=== PATIENT | female | born 1950 | race Caucasian/White ===

== ENCOUNTER 2017-07-07 10:53 | Inpatient (IN) ==
[~2017-07-07 10:53] MED LIST: Vancomycin 1,000 MG, Sodium Chloride IRRigation 1,000 ML IR ONE
--- NOTE | 2017-07-07 11:25 | Anesthesia Evaluation PreOp ---
Date of Encounter: 07/07/17 Time of Encounter: 11:23 - Past History Planned Operation: Right CEA Cardiac History: NE, HTN, Hyperlipidemia, Cardiac Surgery (CABG x 2 2007), Cardiac Stent (2009) Pulmonary History: HODA Dx LEGAL WRITING PROFESSOR History: Denies Any Significant HX Other Medical History: Diabetes Type II, Other (morbid obesity) Anesthesia History: No Prior Anesthetic Complications, Past Anesthesia (CABG, double endo, bilateral TKA, MARQUIS, CEA 2015) Alcohol Use: none Drug use: none Medications and Allergies Acetaminophen [Tylenol] 1,300 mg PO DAILY 08/14/15 [History] Aspirin [Adult Low Dose Aspirin EC] 81 mg PO HS 08/14/15 [History] Losartan Potassium [Cozaar] 50 mg PO BID 08/14/15 [History] Metoprolol [Lopressor] 100 mg PO BID 08/14/15 [History] Nitroglycerin [Nitrostat] 0.4 mg SL Q5M PRN 08/14/15 [History] [place]-3/Dha/Epa/Fish Oil [Fish Oil 1,000 mg Softgel] 1,000 mg PO BID 08/14/15 [ History] Wheat Dextrin [Benefiber] 1 tab PO TID 08/14/15 [History] metFORMIN [Glucophage] 500 mg PO BIDWM 08/14/15 [History] Amlodipine Besylate 10 mg PO DAILY #30 tablet 09/09/15 [Rx] Atorvastatin Calcium [Lipitor] 80 mg PO HS 06/18/17 [History] Calcium Carbonate/Vitamin D3 [Calcium 600 + Vit D Softgel] 1 each PO DAILY 06/18 [History] Clopidogrel [Plavix] 75 mg PO DAILY 06/18/17 [History] Lansoprazole [Prevacid] 30 mg PO DAILY 06/18/17 [History] Spironolactone [Aldactone] 100 mg PO DAILY 06/18/17 [History] Sucralfate [Carafate] 1 g PO BID 06/18/17 [History] raNITIdine HCl [Ranitidine HCl] 300 mg PO HS 06/18/17 [History] 3 Allergy/AdvReac Type Severity Reaction Status Date / Time No Known Allergies Allergy Verified 06/18/17 08:24 - Meds/Allergy Pre-op Review Medications Reviewed: Yes Allergies Reviewed: Yes Beta Blockers on Current Med List: Yes If Beta Blockers taken, Date/Time (Last Dose taken): today 0900 Anesthesia Results - Labs Laboratory Tests 07/01/17 07/01/17 08:45 08:45 Hgb 13.8 Hct 42.4 Plt Count 309 Sodium 140 Potassium 4.1 BUN 14 Creatinine 0.53 L - Imaging Additional studies: stress test: Impression: Perfusion imaging was negative for ischemia or infarct. Pharmacologic stress ECG is non diagnostic for ischemia due to baseline non-specific ST and T changes. Patient described 3/10 chest heaviness during the procedure. Gated EF > 70%. Clinical correlation suggested. Echo: Impressions: LVEF 65%. Normal LV chamber size and function. Mild to moderate concentric left ventricular hypertrophy. Atypical septal motion consistent with post-operative status. Mild left ventricular diastolic dysfunction. Normal right ventricular structure and function. Mild aortic regurgitation. Unable to estimate RVSP due to lack of TR jet. Compared to prior report from 2016, no significant changes. Anesthesia Exam Selected Entries 07/07/17 11:21 Temperature 97.7 F Pulse Rate 61 Respiratory Rate 18 Blood Pressure 176/64 O2 Sat by Pulse Oximetry 93 Weight: 102kg, BMI 41 NPO (# of Hours): 8 - HEENT Pupil (Motor): EOMI Mallampati: IV Teeth: Poor dentition Oral Opening: Less than or equal to 3 - LEGAL WRITING PROFESSOR LOC: Oriented LEGAL WRITING PROFESSOR Motor: Normal RUE, Normal LUE, Normal RLE, Normal LLE, Normal Face LEGAL WRITING PROFESSOR Sensory: Normal: RUE, LUE, RLE, LLE, Face - Cardiac Rhythm: Regular Murmur: None - Pulmonary Breath Sounds: bilateral Clear Respiratory Effort: Symmetrical Anesthesia Assess/Plan ASA Score: 3 Modified Prescott Scale for Level of Consciousness: Cooperative, oriented, and tranquil Anesthetic Plan: General Monitoring Plan: Standard Monitors, A-Line Recovery Plan: PACU (agrees to GA and a-line)
[2017-07-07] MEDS ORDERED: CeFAZolin Syr 2,000MG/20 ML 2,000 MG/20 ML SYRINGE IVPB ONE (11:31)
[2017-07-07] MEDS ORDERED: Albuterol 2.5 MG/3 ML NEBULIZER IH ONE (11:31)
[2017-07-07] MEDS ORDERED: Plasma-Lyte A (PH 7.4) 1,000 ML IVC SCH (11:45)
[2017-07-07] MEDS ORDERED: Lidocaine -MPF 2% 2 ML VIAL ONE ×2 (12:16→12:26)
[2017-07-07] MEDS ORDERED: Dexamethasone 4 MG/ML VIAL ONE (12:17)
[2017-07-07] MEDS ORDERED: *HR* Succinylcholine 200 MG/10 ML VIAL IVP ONE (12:17)
[2017-07-07] MEDS ORDERED: *HR* FentaNYL (PF) 100 MCG/2 ML VIAL ONE (12:17)
[2017-07-07] MEDS ORDERED: Ondansetron 4 MG/2 ML VIAL ONE (12:17)
[2017-07-07] MEDS ORDERED: *HR* Propofol 200 MG/20 ML VIAL IVP ONE (12:18)
--- NOTE | 2017-07-07 12:20 | History & Physical Report ---
Date of Encounter: 07/07/17 Time of Encounter: 12:10 24 Hour HP Update - Instructions Instructions: If the History and Physical is less than 30 days old and was completed prior to A.M. admission and or procedure and has NOT been updated on calendar day of procedure please complete this update prior to performing procedure. - Update Patient reports changes in Medical Condition: No Changes in examination, assessment, or condition: No Changes in Medication: No Preop tests/diagnostics Reviewed: Yes Surgery Remains Indicated: Yes Consent for Planned Operative Procedure(s) Verified: Yes - Pre-Operative Checklist Preoperative Checklist Indicated: Yes Prophylactic Antibiotic Ordered: Yes (vancomycin due to mrsa risk.) Home Medications Include Beta Isma: Yes Beta Isma Taken Today (Day of Surgery): Yes Beta Isma Taken Yesterday (Day Prior to Surgery): Yes Is VTE Prophylaxis Indicated?: Yes
[2017-07-07] MEDS ORDERED: *HR* Heparin 5,000 UNIT/ML VIAL ONE ×2 (12:21→14:32)
[2017-07-07] MEDS ORDERED: EPHEDrine 50 MG/ML VIAL ONE (12:21)
[2017-07-07] MEDS ORDERED: *HR* Midazolam HCl 2 MG/2 ML VIAL ONE (12:22)
[2017-07-07] MEDS ORDERED: Bupivacaine-MPF 0.25% 10 ML VIAL ONE (12:23)
[2017-07-07] MEDS ORDERED: Protamine Sulfate 50 MG/5 ML VIAL IVP ONE (12:23)
[2017-07-07] MEDS ORDERED: Heparin 1,000 UNITS/500 mL 1,000 ML ONE (12:24)
[2017-07-07] MEDS ORDERED: Vancomycin 1,000 MG VIAL ONE (12:25)
[2017-07-07] MEDS ORDERED: *HR* PHENYLEPHRINE 1,000 MCG/10 ML SYRINGE IVP ONE ×2 (12:26→14:25)
[2017-07-07] MEDS ORDERED: *HR* Labetalol 20 MG/4 ML SYRINGE IVP PRN ×2 (13:54→17:08)
[2017-07-07] MEDS ORDERED: *HR* OxyCODONE Immed Rel 5 MG TABLET PO PRN ×2 (13:54→17:08)
[2017-07-07] MEDS ORDERED: MORPHINE SUL Oral CONC 10 MG/0.5 ML ORAL.SYG SL PRN (13:54)
[2017-07-07] MEDS ORDERED: NiCARdipine 2.5 MG/10 ML Syringe IVPB ONE (15:34)
--- NOTE | 2017-07-07 16:08 | Operative Note ---
Date of procedure: 07/07/17 Pre-op diagnosis: 80-99% Right Internal Carotid Artery Stenosis Post-op diagnosis: same Procedure: Right carotid endarterectomy with hemashield patch angioplasty. Complications: None Anesthesia: [id number] Surgeon: Bartolo Li Was there an post production assistant present: No Estimated blood loss (cc): 50 Specimen: Right carotid plaque, right neck lymph node Condition: stable Disposition: PACU Procedure in Detail: Indications: The patient is a 66 year old female with a history of hypertension and hyperlipidemia who was found to have an 80-99% right internal carotid artery stenosis. A right carotid endarterectomy was recommended to reduce her risk of stroke. Procedure: The patient was identified in the preoperative area. The risks, benefits, and alternatives of the procedure were discussed and all questions were answered. The patient was then taken to the operating room and placed in supine position on the operating table. After induction of general endotracheal anesthesia, the patient was cleaned and draped in normal sterile fashion. A longitudinal incision was made anterior to the right sternocleidomastoid muscle. Hemostasis was obtained via electrocautery. Through a process of blunt , sharp, and electrocautery dissection, the platysma was traversed. The jugular vein was identified. The facial vein was clamped, divided, tied off with a 2-0 silk suture ligature. The jugular vein was retracted, exposing the carotid bifurcation. Patient received 2000 units of heparin intravenously at this time. Proximal dissection of the common and external carotid arteries were performed circumferentially. Dissection of the internal carotid was performed circumferentially. Vessels loops were passed around the internal and external carotid and an umbilical tape was passed from the common carotid artery. A lymph node was overlying the carotid sheath and was dissected and sent to pathology. The patient received additional 3000 units of heparin intravenously. After waiting adequate time for the heparin to circulate, the vessels were occluded and a longitudinal arteriotomy was made into the common carotid artery extending into the internal carotid beyond the plaque. Vigorous pulsatile retrograde flow was noted from the internal carotid artery upon release of the loop. Given the strong retrograde flow, no shunt was placed. A dental [place] was used to perform a standard endarterectomy. The proximal and distal endpoints were inspected and no elevated flaps were noted. A Hemashield patch was cut to fit the defect and sutured in place with running 6 -0 Prolene. Prior to completing the closure, each vessel was flushed and then reoccluded. Heparinized saline was infused into the lumen. The patch was completed. Flow was restored in the external carotid artery, followed the common carotid artery, lastly the internal carotid artery was opened. A low resistance arterialized signal was present within the internal carotid artery beyond the patch. Thrombin and Gelfoam were used to aid in hemostasis. Meticulous hemostasis was obtained throughout the wound with electrocautery. Platelet rich and platelet poor plasma were infused into the wounds. The sternocleidomastoid was reapproximated with interrupted 3-0 Vicryl. Platelet rich and platelet poor plasma were infused into the wound. A TLS drain was brought through a separate stab incision and sutured in place with 0 silk suture. The platysma was reapproximated with running 3-0 Vicryl. Local anesthetic was infused in the skin. A 3-0 Monocryl was used to reapproximate the skin. Sterile dressing was applied. The patient was extubated, taken to the recovery room in stable condition.
[2017-07-07] MEDS ORDERED: *HR* Dextrose 50 % in Water (Syg) 50 ML SYRINGE IVP PRN (17:08)
[2017-07-07] MEDS ORDERED: Dextrose Gel 15 GM/37.5 ML TUBE PO PRN ×2 (17:08)
[2017-07-07] MEDS ORDERED: Nitroglycerin 0.4 MG TAB.SUBL SL PRN (17:08)
[2017-07-07] MEDS ORDERED: Acetaminophen 325 MG TABLET PO PRN (17:08)
[2017-07-07] MEDS ORDERED: D5% in Water 1,000 ML IVC PRN (17:08)
[2017-07-07] MEDS ORDERED: OXYCODONE Oral CONC 10 MG/0.5 ML ORAL.SYG SL PRN ×2 (17:08)
[2017-07-07] MEDS ORDERED: Naloxone 0.4 MG/ML INJ IVP PRN (17:08)
--- NOTE | 2017-07-07 17:12 | Anesthesia Evaluation Post Op ---
Date of Encounter: 07/07/17 Time of Encounter: 17:11 - Vital Signs Vital Signs: Vital Signs/O2 Sat, Most Current Temp Pulse Resp BP Pulse Ox 99.3 F 58 16 139/54 96 07/07/17 16:40 07/07/17 16:40 07/07/17 16:40 07/07/17 16:40 07/07/17 16:40 - Lungs Lungs: Clear Ascult./Percussion - Airway Airway: Non-obstructed - Cardiovascular Regular Rate - Mental Status Mental Status: Alert & Oriented, Answers Appropriately - Pain Pain Scale used: Numeric (1 - 10) (tolerable) - Nausea Vomiting Nausea Vomiting: Not Present - Hydration Hydration: NPO, Forbes catheter - Discharge PostOp Status: Transfer Patient to floor
[2017-07-07] MEDS: Insulin LISPRO 300 UNITS/3 ML VIAL SQ SCH (17:34)
[2017-07-07] MEDS: CeFAZolin Premix DUPLEX 2,000 MG/50 ML BAG IVPB SCH (17:41)
[2017-07-07] MEDS: Gabapentin 400 MG CAPSULE PO SCH (17:41)
[2017-07-07] MEDS ORDERED: Famotidine 20 MG TABLET PO SCH (21:00)
[2017-07-07] MEDS ORDERED: Insulin LISPRO 300 UNITS/3 ML VIAL SQ SCH (21:00)
[2017-07-07] MEDS ORDERED: Aspirin Enteric Coated 81 MG Tablet PO SCH (21:00)
[2017-07-07] MEDS: Sucralfate 1 GM TABLET PO SCH (21:20)
[2017-07-07] MEDS: *HR* HYDROcodone/Acet 5/325 mg TABLET PO PRN (21:20)
[2017-07-07] MEDS ORDERED: Vancomycin 1,500 MG in D5% in Water 250 ML IVPB ONE (23:30)
[2017-07-08] MEDS: CeFAZolin Premix DUPLEX 2,000 MG/50 ML BAG IVPB SCH (02:40)
[2017-07-08] MEDS: (Omega-3/Dha/Epa/Fish Oil [Fish Oil 1,000 Mg Softgel]) PO SCH ×2 (04:40→08:21)
[2017-07-08] MEDS ORDERED: *HR* Heparin 5,000 UNIT/ML VIAL SQ SCH ×2 (06:00)
--- NOTE | 2017-07-08 07:26 | Discharge Summary ---
Orders not resulted at time of discharge: Pending orders 07/07/17 15:04 Surgical Pathology [PTH] Routine 07/07/17 15:30 Surgical Pathology [PTH] Routine Date of Encounter: 07/08/17 Time of Encounter: 08:30 - Discharge Diagnosis (1) Carotid stenosis, bilateral Priority: Primary Status: Chronic (2) Essential hypertension Priority: Secondary Status: Chronic (3) Type 2 diabetes mellitus with other circulatory complications Priority: Secondary Status: Chronic (4) Mixed hyperlipidemia Priority: Secondary Status: Chronic (5) Type 2 diabetes mellitus Priority: Secondary Status: Chronic Qualifiers: Diabetes mellitus complication status: with circulatory complication Diabetes mellitus complication detail: with other circulatory complications Diabetes mellitus assistant terminal manager insulin use: without long-term use Qualified Code( s): E11.59 - Type 2 diabetes mellitus with other circulatory complications (6) CAD (coronary artery disease) Priority: Secondary Status: Chronic Qualifiers: Coronary Disease-Associated Artery/Lesion type: bypass graft [place] vs. transplanted heart: [place] heart Associated angina: angina presence unspecified Qualified Code(s): I25.810 - Atherosclerosis of coronary artery bypass graft(s) without angina pectoris - Hospital Course Hospital course: Ms. Solomon is a 66 year old female - Time Spent with Patient Total time spent providing and/or coordinating discharge services: - Discharge Medications Prescriptions: HYDROcodone/Acet 5/325 mg [[place] 5-325 mg] 1 tab PO Q6HR PRN 5 Days #20 tablet PRN Reason: postoperative pain Home Medications: Acetaminophen [Tylenol] 1,300 mg PO DAILY PRN 08/14/15 [History] Aspirin [Adult Low Dose Aspirin EC] 81 mg PO HS 08/14/15 [History] Losartan Potassium [Cozaar] 50 mg PO BID 08/14/15 [History] Metoprolol [Lopressor] 100 mg PO BID 08/14/15 [History] Nitroglycerin [Nitrostat] 0.4 mg SL Q5M PRN 08/14/15 [History] [place]-3/Dha/Epa/Fish Oil [Fish Oil 1,000 mg Softgel] 1,000 mg PO BID 08/14/15 [ History] Wheat Dextrin [Benefiber] 1 tab PO TID 08/14/15 [History] metFORMIN [Glucophage] 500 mg PO BIDWM 08/14/15 [History] Amlodipine Besylate 10 mg PO DAILY #30 tablet 09/09/15 [Rx] Atorvastatin Calcium [Lipitor] 80 mg PO HS 06/18/17 [History] Calcium Carbonate/Vitamin D3 [Calcium 600 + Vit D Softgel] 1 each PO DAILY 06/18 [History] Clopidogrel [Plavix] 75 mg PO DAILY 06/18/17 [History] Lansoprazole [Prevacid] 30 mg PO DAILY 06/18/17 [History] Spironolactone [Aldactone] 100 mg PO DAILY 06/18/17 [History] Sucralfate [Carafate] 1 g PO BID 06/18/17 [History] raNITIdine HCl [Ranitidine HCl] 300 mg PO HS 06/18/17 [History] Gabapentin [Neurontin] 400 mg PO QID 07/07/17 [History] HYDROcodone/Acet 5/325 mg [[place] 5-325 mg] 1 tab PO Q6HR PRN 5 Days #20 tablet 07/08/17 [Rx] Allergies/Adverse Reactions: 3 Allergy/AdvReac Type Severity Reaction Status Date / Time No Known Allergies Allergy Verified 07/07/17 12:23 Date of admission: 07/07/17 17:07 Primary care physician: Art Solomon MD Procedure(s) Performed: Right carotid endarterectomy Discharging clinician: Bartolo Li Anticipated date of discharge: 07/08/17 Exam Vital Signs, Last 4 Hours Temp Pulse Resp BP Pulse Ox 07/08/17 07:09 61 135/57 95 07/08/17 05:58 98.2 F 65 16 129/48 97 - Patient Status Disposition: Home, Self-Care Condition: Good Functional capacity at discharge: independent ambulation Overall status at discharge: patient is back to baseline - Discharge Instructions Follow Up With: Bartolo Li MD [Partnered Physician] - 08/11/17 3:40 am Art Solomon MD [Primary Care Provider] - 07/14/17 3:15 am - Diet and Activity Activity: increase activity as tolerated Diet: advance to your usual diet - VTE Documentation of Mechanical Device: Intermittent pneumatic compression device
[2017-07-08] MEDS: Gabapentin 400 MG CAPSULE PO SCH ×2 (08:08→08:20)
[2017-07-08] MEDS: Insulin LISPRO 300 UNITS/3 ML VIAL SQ SCH (08:13)
[2017-07-08] MEDS: Sucralfate 1 GM TABLET PO SCH (08:20)
[2017-07-08] MEDS ORDERED: *HR* Metoprolol 5 MG/5 ML VIAL IVP SCH (09:00)
[2017-07-08] MEDS ORDERED: amLODIPine 5 MG TABLET PO SCH (09:00)
[2017-07-08] MEDS ORDERED: VITAMIN D3 PO SCH (09:00)
[2017-07-08] MEDS ORDERED: CALCIUM CARBONATE PO SCH (09:00)
[2017-07-08] MEDS ORDERED: Metoprolol 100 MG TABLET PO SCH (09:00)
[2017-07-08] MEDS: *HR* HYDROcodone/Acet 5/325 mg TABLET PO PRN (11:06)
[2017-07-08 11:28] VITALS: BP 154/51
== END 2017-07-08 11:56 | disposition home or self-care (01) | DRG 38 ==
LOC: SAMDAY 10:53 → 2NNU 17:07
PROVIDERS: ADMIT Surgery; ATTEND Surgery

== ENCOUNTER 2017-07-10 08:10 | Inpatient (IN) ==
[2017-07-10] MEDS ORDERED: Ipratropium/Albuterol Neb 3 ML IH ONE (08:23)
--- NOTE | 2017-07-10 08:27 | Emergency Department Note ---
Disposition Clinical Impression: Hypoxia, Elevated troponin Pneumonia Qualifiers: Pneumonia type: due to unspecified organism Laterality: unspecified laterality Lung location: unspecified part of lung Qualified Code(s): J18.9 - Pneumonia, unspecified organism Disposition: Admitted As Inpatient Condition: Fair Referrals: Art Solomon MD [Primary Care Provider] - Forms: ED Satisfaction Letter Time of Disposition: 09:23 SOB HPI - General Chief Complaint: ED Shortness of Breath/Dyspnea Stated Complaint: JEANNETTE, recent surgery Time Seen by Provider: 07/10/17 08:12 Source: patient, family Mode of arrival: ambulatory Limitations: no limitations Nursing Notes Reviewed: Yes Vital Signs Reviewed: Yes - History of Present Illness 66-year-old female with a history of ACS, hypertension, diabetes presents for evaluation of dyspnea. Patient also notes epistaxis now resolved from this morning. Patient's postoperative from a right carotid endarterectomy. The patient states that she has been feeling short of breath for the past 24 hours. Patient reports subjective fevers. No productive cough. Patient denies any chest pain. Patient denies abdominal pain. No nausea or vomiting or diaphoresis. Patient states she does not require oxygen at home. Patient does have a CPAP at home. Patient denies a formal diagnosis of COPD however has remote history of smoking. - Related Data Home Medications Medication Instructions Recorded Confirmed Acetaminophen [Tylenol] 1,300 mg PO DAILY PRN 08/14/15 07/10/17 Aspirin [Adult Low Dose Aspirin EC] 81 mg PO HS 08/14/15 07/10/17 Losartan Potassium [Cozaar] 50 mg PO BID 08/14/15 07/10/17 Metoprolol [Lopressor] 100 mg PO BID 08/14/15 07/10/17 Nitroglycerin [Nitrostat] 0.4 mg SL Q5M PRN 08/14/15 07/10/17 [place]-3/Dha/Epa/Fish Oil [Fish Oil 1,000 mg PO BID 08/14/15 07/10/17 1,000 mg Softgel] Wheat Dextrin [Benefiber] 1 tab PO TID 08/14/15 07/10/17 metFORMIN [Glucophage] 500 mg PO BIDWM 08/14/15 07/10/17 Atorvastatin Calcium [Lipitor] 80 mg PO HS 06/18/17 07/10/17 Calcium Carbonate/Vitamin D3 1 each PO DAILY 06/18/17 07/10/17 [Calcium 600 + Vit D Softgel] Clopidogrel [Plavix] 75 mg PO DAILY 06/18/17 07/10/17 Lansoprazole [Prevacid] 30 mg PO DAILY 06/18/17 07/10/17 Spironolactone [Aldactone] 100 mg PO DAILY 06/18/17 07/10/17 Sucralfate [Carafate] 1 g PO BID 06/18/17 07/10/17 raNITIdine HCl [Ranitidine HCl] 300 mg PO HS 06/18/17 07/10/17 Gabapentin [Neurontin] 400 mg PO QID 07/07/17 07/10/17 Previous Rx's Medication Instructions Recorded Amlodipine Besylate 10 mg PO DAILY #30 tablet 09/09/15 HYDROcodone/Acet 5/325 mg [[place] 1 tab PO Q6HR PRN 5 Days #20 tablet 07/08/17 5-325 mg] Allergies Allergy/AdvReac Type Severity Reaction Status Date / Time No Known Allergies Allergy Verified 07/10/17 09:12 All systems ED: reviewed and negative except as stated. Constitutional: Reports: fever Cardiovascular: Denies: chest pain Respiratory: Reports: cough, dyspnea. Denies: wheezes, sputum production Gastrointestinal: Denies: abdominal pain, nausea, vomiting Past Medical History - Past Medical History Source: patient Medical history: Reports: arthritis, coronary artery disease, diabetes, hyperlipidemia, hypertension, myocardial infarction Surgical history: Reports: angioplasty/stent, carotid endarterectomy, cholecystectomy, coronary bypass (CABG), hysterectomy, knee replacement, ureteral stent Psychiatric history: Reports: no psych history - Social History Smoking Status: Former smoker Smokeless Tobacco Status: No Alcohol use: Reports: none Drug use: Reports: none Physical Exam - General Limitations: no limitations General appearance: alert, in distress - Head Head exam: atraumatic, normocephalic, normal inspection - Eye Eye exam: Present: normal appearance, PERRL, EOMI - ENT ENT exam: normal exam, normal oropharynx, mucous membranes moist - Expanded ENT Exam External ear exam: Present: normal external inspection Nose exam: other (Clot on R nare) Mouth exam: Present: normal external inspection Teeth exam: Present: normal inspection - Neck Neck exam: Present: normal inspection, full ROM, trachea midline - Chest Chest inspection: Present: normal inspection, symmetric chest wall rise - Respiratory Respiratory exam: Present: accessory muscle use, other (diffuesly dimimished.). Absent: normal lung sounds bilaterally, respiratory distress - Cardiovascular Cardiovascular exam: Present: regular rate, normal rhythm. Absent: systolic murmur - Abdominal Exam Abdominal exam: Present: soft, Non-Tender - Extremities Exam Extremities exam: Present: normal inspection. Absent: pedal edema - Neurological Exam Neurological exam: Present: alert, oriented X3, CN II-XII intact - Skin Skin exam: Present: warm, dry, intact, normal color Course Course Narrative: Patient will get basic labs chest x-ray. Patient is deemed low risk for PE and given the hypoxia with recent hospitalization with mobilization patient will get a d-dimer. Patient's records reviewed showed the patient does have a recent echo and stress test within the past 2 months which was negative for ischemia or infarct. Patient had an EF of 65-70%. - Reevaluation(s) Reevaluation #1: Patient still requires oxygen. Patient's white count shows a leukocytosis with a left shift. Chest x-ray shows pulmonary vascular congestion however concerns for subclinical pneumonia given the white count as well as cough and hypoxia. With recent hospitalization. Patient was started on antibiotics. Time: 09:08 Reevaluation #2: Patient seen and examined. Patient breathing is unlabored. Patient labs reviewed. Patient will get a CTA chest with elevated D dimer. Time: 09:31 Vital Signs Temperature 98.8 F 07/10/17 08:17 Pulse Rate 76 07/10/17 08:17 Respiratory Rate 24 07/10/17 08:17 Blood Pressure 170/73 07/10/17 08:17 O2 Sat by Pulse Oximetry 80 07/10/17 08:17 Temperature 98.8 F 07/10/17 08:17 Pulse Rate 77 07/10/17 08:38 Respiratory Rate 22 07/10/17 08:38 Blood Pressure 156/77 07/10/17 08:38 O2 Sat by Pulse Oximetry 87 07/10/17 08:38 Oxygen Delivery Oxygen Delivery Room Air Shortness of Breath/Dyspnea - MDM Narrative Medical decision making narrative: Patient presents for complaints of dyspnea. Patient had a recent surgery. Initially the patient was requiring oxygen with room air sat of 84%. Patient's been on 3-4 L in the emergency department. Patient's breathing is nonlabored. Patient did have an albuterol trial. No formal diagnosis of COPD. Patient's chest x-ray showed pulmonary vascular congestion. Patient does have a slight elevation of her BNP. She does not have a history of congestive heart failure. With a recent stress test reviewed. Given the patient's recent hospitalization as well as leukocytosis the patient did meet SIRS criteria and was started on antibiotics for concerns of possible pneumonia. Patient was deemed low risk for pulmonary embolism and did have a mild elevation of d-dimer ultimately prompting a CT of the chest. Patient was not over aggressively hydrated given the chest x-ray findings of congestion as well as an elevated BNP. In the setting of an elevated troponin with no ischemic EKG findings. Patient will be admitted to the hospitalist service for further evaluation respiratory support. Patient's CT shows pulmonary edema versus early developing pneumonia. Given the patient's clinical exam the patient will be treated for hospital associated pneumonia. - Lab Data Lab results reviewed: Yes I reviewed the patient's lab results. Result diagrams: 07/10/17 08:34 07/10/17 08:34 Lab Results 07/10/17 07/10/17 07/10/17 Range/Units 08:34 08:34 08:34 WBC 19.2 H (4.3-11.1) K/mcL RBC 4.28 (3.82-4.97) M/mcL Hgb 12.5 (11.5-15.4) g/dL Hct 39.1 (35.3-44.9) % MCV 91.4 (83.0-100.0) fL MCH 29.2 (28.0-33.3) pg MCHC 32.0 (31.6-35.5) g/dL RDW 13.6 (11.5-14.5) % Plt Count 282 (140-400) K/mcL MPV 10.5 (9.4-12.4) fL Immature Gran % 0.5 (0-4) % Seg Neutrophils % 75.5 % Lymphocytes % 11.9 % Monocytes % 9.5 % Eosinophils % 2.2 % Basophils % 0.4 % Neutrophils # 14.5 H (1.6-8.9) K/mcL Lymphocytes # 2.3 (0.6-4.6) K/mcL Monocytes # 1.8 H (0.0-1.3) K/mcL Eosinophils # 0.4 (0.0-0.6) K/mcL Basophils # 0.1 (0.0-0.2) K/mcL D-Dimer (0-500) ng/mLFEU Sodium 139 (136-145) mEq/L Potassium 3.5 (3.5-5.1) mEq/L Chloride 104 (98-107) mEq/L Carbon Dioxide 25 (23-29) mEq/L BUN 9 (8-23) mg/dL Creatinine 0.49 L (0.60-1.20) mg/dL Est GFR ( Amer) > 60 (> 60) Est GFR (Non-Af Amer) > 60 (> 60) BUN/Creatinine Ratio 18 (6-26) Glucose 164 H (70-105) mg/dL Calculated Osmolality 290 (280-300) Lactic Acid 1.9 (0.5-2.2) mmol/L Calcium 9.2 (8.6-10.3) mg/dL Troponin I 0.04 H* (< 0.04) ng/mL B-Natriuretic Peptide (Less than 100) pg/mL 07/10/17 07/10/17 Range/Units 08:34 08:34 WBC (4.3-11.1) K/mcL RBC (3.82-4.97) M/mcL Hgb (11.5-15.4) g/dL Hct (35.3-44.9) % MCV (83.0-100.0) fL MCH (28.0-33.3) pg MCHC (31.6-35.5) g/dL RDW (11.5-14.5) % Plt Count (140-400) K/mcL MPV (9.4-12.4) fL Immature Gran % (0-4) % Seg Neutrophils % % Lymphocytes % % Monocytes % % Eosinophils % % Basophils % % Neutrophils # (1.6-8.9) K/mcL Lymphocytes # (0.6-4.6) K/mcL Monocytes # (0.0-1.3) K/mcL Eosinophils # (0.0-0.6) K/mcL Basophils # (0.0-0.2) K/mcL D-Dimer 739 H (0-500) ng/mLFEU Sodium (136-145) mEq/L Potassium (3.5-5.1) mEq/L Chloride (98-107) mEq/L Carbon Dioxide (23-29) mEq/L BUN (8-23) mg/dL Creatinine (0.60-1.20) mg/dL Est GFR ( Amer) (> 60) Est GFR (Non-Af Amer) (> 60) BUN/Creatinine Ratio (6-26) Glucose (70-105) mg/dL Calculated Osmolality (280-300) Lactic Acid (0.5-2.2) mmol/L Calcium (8.6-10.3) mg/dL Troponin I (< 0.04) ng/mL B-Natriuretic Peptide 373 H (Less than 100) pg/mL - Radiology Data Radiology results reviewed: Yes I reviewed the patient's radiology results. Chest X-Ray 07/10/17 08:23 IMPRESSION: Pulmonary vascular congestion D/ / Sagar Brown MD / Sagar Brown MD Interpreting Provider: Sagar Brown MD Chest X-Ray 07/10/17 08:23 IMPRESSION: Pulmonary vascular congestion D/ / Sagar Brown MD / Sagar Brown MD Interpreting Provider: Sagar Brown MD Chest CTA 07/10/17 09:30 IMPRESSION: 1. No acute pulmonary emboli. 2. Post CABG changes with atherosclerosis. Pulmonary artery hypertension. Reflux of contrast into the hepatic veins which can be seen in the setting of right heart dysfunction. 3. Nonspecific pulmonary findings which could represent early pulmonary edema versus possible developing pneumonia. D/ / Jayant Murray MD / Jayant Murray MD Interpreting Provider: Jayant Murray MD - EKG Data EKG attestation: Yes I reviewed and interpreted this EKG. EKG shows normal: Reports: sinus rhythm Rate: Reports: normal Rhythm: Reports: NSR Q waves: Reports: III T wave inversions noted in: Reports: v1, v2, v3 Interpretation: Reports: no acute changes, nonspecific ST-T wave changes Golden - Golden Situation: Demographics Background: Presenting Complaint Assessment: Vital Signs, Patient/Family Expectation Recommendation: Barrier(s) to disposition, Recommendation based on pending studies, treatments, or consults Golden Report Given to: Dr. Davis Franks Repor Time: 10:27
[2017-07-10 08:53] LABS: Basophils # 0.1 K/mcL (0.0-0.2); Basophils % 0.4 %; Eosinophils # 0.4 K/mcL (0.0-0.6); Eosinophils % 2.2 %; Hematocrit 39.1 % (35.3-44.9); Hemoglobin 12.5 g/dL (11.5-15.4); Immature Granulocytes % 0.5 % (0-4); Lymphocytes # 2.3 K/mcL (0.6-4.6); Lymphocytes % 11.9 %; Mean Corpuscular Hemoglobin 29.2 pg (28.0-33.3); Mean Corpuscular Volume 91.4 fL (83.0-100.0); Mean Platelet Volume 10.5 fL (9.4-12.4); Monocytes # 1.8 K/mcL (0.0-1.3); Monocytes % 9.5 %; Neutrophils # 14.5 K/mcL (1.6-8.9); Platelet Count 282 K/mcL (140-400); Red Blood Count 4.28 M/mcL (3.82-4.97); Red Cell Distribution Width 13.6 % (11.5-14.5); Segmented Neutrophils % 75.5 %
--- NOTE | 2017-07-10 08:57 | Emergency Department Note ---
START Narrative - START START: I examined this patient and my medical decision-making was reviewed with the Resident Physician. I agree with the documented findings, disposition and treatment plan as described except to the extent set forth below. 66 year old female presentees to the ED s/p right carotid artery endectomy and is currenlty on plavix and was experingina nosebleed this morning and JEANNETTE. Upon arrival she was 86% on RA and does not supplental oxygen at home. Patinet has been placed on 2LNC and will be treated with breathin treatments and have a cardipulmonary workup wiht D-dimer to rule out PE. We will admit to medicine.
[2017-07-10] MEDS ORDERED: Piperacillin/Tazobactam 3.375 GM in 0.9 % Sodium Chloride Mini Bag 100 ML IVPB ONE (09:08)
[2017-07-10 09:20] LABS: BUN/Creatinine Ratio 18 (6-26); Blood Urea Nitrogen 9 mg/dL (8-23); Calcium 9.2 mg/dL (8.6-10.3); Carbon Dioxide 25 mEq/L (23-29); Chloride 104 mEq/L (98-107); Glucose 164 mg/dL (70-105); Osmolality,Calculated 290 (280-300); Potassium 3.5 mEq/L (3.5-5.1); Sodium 139 mEq/L (136-145); eGFR For African Americans > 60 (> 60); eGFR For Non-African Americans > 60 (> 60)
[2017-07-10 09:22] LABS: Troponin I 0.04 ng/mL (< 0.04)
[2017-07-10] MEDS ORDERED: Aspirin 81 MG TAB.CHEW PO ONE (09:23)
[2017-07-10] MEDS ORDERED: *HR* Promethazine 25 MG/ML VIAL IVP PRN (10:26)
[2017-07-10] MEDS ORDERED: Naloxone 0.4 MG/ML INJ IVP PRN (10:26)
[2017-07-10] MEDS ORDERED: Ondansetron 4 MG/2 ML VIAL IVP PRN (10:26)
[2017-07-10] MEDS ORDERED: Nitroglycerin 0.4 MG TAB.SUBL SL PRN (10:30)
--- NOTE | 2017-07-10 11:12 | Internal Med History&Physical ---
Date of Encounter: 07/10/17 Time of Encounter: 10:30 Assessment and Plan (1) Acute respiratory failure with hypoxia Current visit: Yes Status: Acute Admit the pt into Tele Mostly due to PNA + Pulmonary edema started on empirical abx Cefepime + Levaquin Vancomycin x 1 dose given in the ER Cont hermann Duoneb + O2 try to wean her off the oxygen as she tolerates (2) Pneumonia Current visit: Yes Status: Acute Mostly bacterial also concerned for aspiration pneumonia started on empirical antibiotic Levaquin and Cefepime check for step pneumonia, Legionella, sputum culture and respiratory viral panel Qualifiers: Pneumonia type: due to unspecified organism Laterality: right Lung location: middle lobe of lung Qualified Code(s): J18.1 - Lobar pneumonia, unspecified organism (3) Pulmonary edema Current visit: Yes Status: Acute Review chest x-ray by myself showing vascular congestion and patchy infiltrate in right middle lobe Could be due to pneumonia also concerned for heart failure exacerbation check 2-D echo in AM started her on IV Lasix 20 b.i.d. continue symptomatic and supportive Qualifiers: Qualified Code(s): J81.0 - Acute pulmonary edema (4) Reactive airway disease with wheezing Current visit: Yes Status: Acute Continue DuoNeb no need of steroids at this point Qualifiers: Qualified Code(s): J45.20 - Mild intermittent asthma, uncomplicated (5) Elevated troponin Current visit: Yes Status: Acute Mostly due to demand ischemia continue trend on a troponin no acute EKG changes noticed resumed home medications aspirin, beta orestes, Plavix and Losartan (6) CAD (coronary artery disease) Current visit: No Status: Chronic Resumed all her home medications Qualifiers: Coronary Disease-Associated Artery/Lesion type: bypass graft [place] vs. transplanted heart: [place] heart Associated angina: angina presence unspecified Qualified Code(s): I25.810 - Atherosclerosis of coronary artery bypass graft(s) without angina pectoris (7) Carotid stenosis, bilateral Current visit: No Status: Chronic Status post bilateral carotid endarterectomy (8) Essential hypertension Current visit: No Status: Chronic Resumed all her home medications except Aldactone (9) Mixed hyperlipidemia Current visit: No Status: Chronic (10) Type 2 diabetes mellitus Current visit: No Status: Chronic Hello metformin started her on insulin sliding scale Qualifiers: Diabetes mellitus residential insulin use: without termite control technician use Diabetes mellitus complication status: with circulatory complication Diabetes mellitus complication detail: with other circulatory complications Qualified Code(s): E11.59 - Type 2 diabetes mellitus with other circulatory complications Internal Medicine - H&P: HPI Chief complaint: Shortness of breath Admitted From: Emergency Dept Plans for Post Hospital Care: Home History of present illness: Ms. Solomon is a 66 year old female with known past medical history of hypertension, hyperlipidemia, diabetes type II, morbid obesity, CAD with status post cabbage, status post b/l carotid endarterectomy, Rt one donce recently on 07/07/[address] Li now she presented emergency room with shortness of breath and cough with expectoration since this morning. Patient did mention that she has yellowish expectoration. Denied any CP. She denied any recent travel history, denied any sick contacts. She is not on home O2. Currently pt was hypoxic, her Spo2 in 80's on RA. Her CXR showed increased vascular congestion. CTA of chest r/o PE, however she does increased vascular congestion and possible early pneumonia. Past Med Surg Social Fam HX - Past Medical History Medical history: arthritis, coronary artery disease, diabetes, hyperlipidemia, hypertension, myocardial infarction Psychiatric history: no psych history - Past Surgical History Surgical History: angioplasty/stent, carotid endarterectomy, cholecystectomy, coronary bypass (CABG), hysterectomy, knee replacement, ureteral stent - Social History Smoking Status: Former smoker Smokeless Tobacco Status: No Alcohol use: none Drug use: none - Family History Mother Hx Family Cardiac Disorders: Yes (CHF, HTN, [place]) Hx Family Respiratory Disorders: No Hx Family Cancer: Yes (Liver) Hx Family GI Disorders: No Hx Family Endocrine Disorder: Yes (DM) Hx Family Neuromuscular Disorders: No Hx Family Neurologic Disorders: No Hx Family HEENT Disorders: No Hx Family Autoimmune Disorders: No Father Hx Family Cardiac Disorders: Yes ([place], HTN) Hx Family Respiratory Disorders: No Hx Family Cancer: No Hx Family GI Disorders: No Hx Family Endocrine Disorder: No Hx Family Neuromuscular Disorders: No Hx Family Neurologic Disorders: No Hx Family HEENT Disorders: No Hx Family Autoimmune Disorders: No Paternal Grandfather Hx Family Cardiac Disorders: Yes (Angina, HTN) Hx Family Respiratory Disorders: No Hx Family Cancer: No Hx Family GI Disorders: No Hx Family Endocrine Disorder: No Hx Family Neuromuscular Disorders: No Hx Family Neurologic Disorders: No Hx Family HEENT Disorders: No Hx Family Autoimmune Disorders: No Internal Medicine - H&P: Meds Acetaminophen [Tylenol] 1,300 mg PO DAILY PRN 08/14/15 [History] Aspirin [Adult Low Dose Aspirin EC] 81 mg PO HS 08/14/15 [History] Losartan Potassium [Cozaar] 50 mg PO BID 08/14/15 [History] Metoprolol [Lopressor] 100 mg PO BID 08/14/15 [History] Nitroglycerin [Nitrostat] 0.4 mg SL Q5M PRN 08/14/15 [History] [place]-3/Dha/Epa/Fish Oil [Fish Oil 1,000 mg Softgel] 1,000 mg PO BID 08/14/15 [ History] Wheat Dextrin [Benefiber] 1 tab PO TID 08/14/15 [History] metFORMIN [Glucophage] 500 mg PO BIDWM 08/14/15 [History] Amlodipine Besylate 10 mg PO DAILY #30 tablet 09/09/15 [Rx] Atorvastatin Calcium [Lipitor] 80 mg PO HS 06/18/17 [History] Calcium Carbonate/Vitamin D3 [Calcium 600 + Vit D Softgel] 1 each PO DAILY 06/18 [History] Clopidogrel [Plavix] 75 mg PO DAILY 06/18/17 [History] Lansoprazole [Prevacid] 30 mg PO DAILY 06/18/17 [History] Spironolactone [Aldactone] 100 mg PO DAILY 06/18/17 [History] Sucralfate [Carafate] 1 g PO BID 06/18/17 [History] raNITIdine HCl [Ranitidine HCl] 300 mg PO HS 06/18/17 [History] Gabapentin [Neurontin] 400 mg PO QID 07/07/17 [History] HYDROcodone/Acet 5/325 mg [[place] 5-325 mg] 1 tab PO Q6HR PRN 5 Days #20 tablet 07/08/17 [Rx] 3 Allergy/AdvReac Type Severity Reaction Status Date / Time No Known Allergies Allergy Verified 07/10/17 09:12 All Systems PM: A 10-system review of systems was performed and is negative for pertinent findings except as documented above in the HPI. Review of systems: All the systems are reviewed everything is benign except the systems and symptoms I mentioned in the history of present illness - Constitutional Vitals: Temp Pulse Resp BP Pulse Ox 98.8 F 70 16 147/53 91 07/10/17 08:17 07/10/17 10:33 07/10/17 10:33 07/10/17 10:33 07/10/17 10:33 General appearance: Present: mild distress, A&O X 3, answers questions appropriately - Head Head exam: Present: atraumatic, normal inspection - Neck Neck exam general surgery: Present: supple - Respiratory Respiratory exam: Present: decreased breath sounds, respiratory distress (Mild) , wheezes (Moderate bilaterally). Absent: rales, rhonchi - Cardiovascular Cardiovascular exam: Present: RRR, +S1, +S2, systolic murmur. Absent: tachycardia - GI/Abdominal GI/Abdominal exam: Present: distended, pulsatile mass, soft. Absent: rebound, rigid, tenderness - Extremities Exam Extremities exam: Present: pedal edema (Trace). Absent: calf tenderness, tenderness - Back Exam Back exam: Absent: CVA tenderness (L), CVA tenderness (R) - Neurological Exam Neurological exam: Present: alert, oriented X3 - Psychiatric Psychiatric exam: Present: normal affect, normal mood - Skin Skin exam: Absent: rash Internal Med - H&P Results - Labs CBC & Chem 7: 07/10/17 08:34 07/10/17 08:34 Labs: Short CBC 07/10/17 Range/Units 08:34 WBC 19.2 H (4.3-11.1) K/mcL Hgb 12.5 (11.5-15.4) g/dL Hct 39.1 (35.3-44.9) % Plt Count 282 (140-400) K/mcL Neutrophils # 14.5 H (1.6-8.9) K/mcL BMP 07/10/17 08:34 Sodium 139 Potassium 3.5 Chloride 104 Carbon Dioxide 25 BUN 9 Creatinine 0.49 L Glucose 164 H Calcium 9.2 Cardiac Enzymes 07/10/17 Range/Units 08:34 Troponin I 0.04 H* (< 0.04) ng/mL - Impressions ITS Impressions Chest X-Ray 07/10/17 08:23 IMPRESSION: Pulmonary vascular congestion D/ / Sagar Brown MD / Sagar Brown MD Interpreting Provider: Sagar Brown MD Chest CTA 07/10/17 09:30 IMPRESSION: 1. No acute pulmonary emboli. 2. Post CABG changes with atherosclerosis. Pulmonary artery hypertension. Reflux of contrast into the hepatic veins which can be seen in the setting of right heart dysfunction. 3. Nonspecific pulmonary findings which could represent early pulmonary edema versus possible developing pneumonia. D/ / 07/10/2017 10:59:26 Jayant Murray MD / marianna Interpreting Provider: Jayant Murray MD
[2017-07-10] MEDS: Furosemide 20 MG/2 ML VIAL IVP SCH ×2 (12:38→17:33)
[2017-07-10] MEDS: Gabapentin 400 MG CAPSULE PO SCH ×3 (12:38→21:45)
[2017-07-10 13:58] LABS: Adenovirus Not Detected (Not Detect); Bordetella Pertussis Not Detected (Not Detect); Chlamydophila pneumoniae Not Detected (Not Detect); Coronavirus 229E Not Detected (Not Detect); Coronavirus HKU1 Not Detected (Not Detect); Coronavirus NL63 Not Detected (Not Detect); Coronavirus OC43 Not Detected (Not Detect); Human Metapneumovirus Not Detected (Not Detect); Human Rhinovirus/Enterovirus Not Detected (Not Detect); Influenza A Subtype 2009 H1 Not Detected (Not Detect); Influenza A Untypeable Not Detected (Not Detect); Influenza B Not Detected (Not Detect); Mycoplasma pneumoniae Not Detected (Not Detect); Parainfluenza Virus 1 Not Detected (Not Detect); Parainfluenza Virus 2 Not Detected (Not Detect); Parainfluenza Virus 3 Not Detected (Not Detect); Parainfluenza Virus 4 Not Detected (Not Detect); Respiratory Syncytial Virus Not Detected (Not Detect)
[2017-07-10] MEDS: Cefepime HCl 1,000 MG in 0.9 % Sodium Chloride Mini Bag 100 ML IVPB SCH (17:51)
[2017-07-10] MEDS: Metoprolol 100 MG TABLET PO SCH (17:53)
[2017-07-10] MEDS: *HR* HYDROcodone/Acet 5/325 mg TABLET PO PRN (19:48)
[2017-07-10] MEDS ORDERED: Metoprolol 100 MG TABLET PO SCH (21:00)
[2017-07-10] MEDS: Aspirin Enteric Coated 81 MG Tablet PO SCH (21:45)
[2017-07-10] MEDS: Famotidine 20 MG TABLET PO SCH (21:45)
[2017-07-10] MEDS: Sucralfate 1 GM TABLET PO SCH (21:45)
[2017-07-10] MEDS: [Fish Oil 1,000 Mg Softgel] PO SCH (21:45)
[2017-07-11 05:06] LABS: Basophils # 0.1 K/mcL (0.0-0.2); Basophils % 0.4 %; Eosinophils # 0.6 K/mcL (0.0-0.6); Eosinophils % 4.2 %; Hematocrit 36.2 % (35.3-44.9); Hemoglobin 11.7 g/dL (11.5-15.4); Immature Granulocytes % 0.2 % (0-4); Mean Corpuscular HGB Conc 32.3 g/dL (31.6-35.5); Mean Corpuscular Hemoglobin 29.3 pg (28.0-33.3); Mean Corpuscular Volume 90.5 fL (83.0-100.0); Mean Platelet Volume 10.9 fL (9.4-12.4); Monocytes # 1.4 K/mcL (0.0-1.3); Monocytes % 10.7 %; Neutrophils # 7.2 K/mcL (1.6-8.9); Platelet Count 268 K/mcL (140-400); Red Cell Distribution Width 13.2 % (11.5-14.5); Segmented Neutrophils % 54.5 %
[2017-07-11] MEDS: *HR* Enoxaparin 40 MG/0.4 ML SYRINGE SQ SCH (05:55)
[2017-07-11] MEDS: Cefepime HCl 1,000 MG in 0.9 % Sodium Chloride Mini Bag 100 ML IVPB SCH ×2 (05:55→16:58)
[2017-07-11 06:04] LABS: Alanine Aminotransferase 11 Units/L (7-52); Albumin 3.9 g/dL (3.5-5.7); Albumin/Globulin Ratio 1.3 (1.1-2.2); Alkaline Phosphatase 46 Units/L (34-104); Aspartate Amino Transferase 10 Units/L (13-39); BUN/Creatinine Ratio 18 (6-26); Blood Urea Nitrogen 11 mg/dL (8-23); Calcium 8.9 mg/dL (8.6-10.3); Carbon Dioxide 29 mEq/L (23-29); Chloride 101 mEq/L (98-107); Chol/HDL Ratio 3.9 (0-4.9); Cholesterol 134 mg/dL (< 200); Globulin 2.9 g/dL (2.4-3.5); Glucose 109 mg/dL (70-105); HDL Cholesterol 34 mg/dL (40-59); LDL Cholesterol,Calculated 72 mg/dL (0-99); Magnesium 1.5 mg/dL (1.6-2.6); Osmolality,Calculated 286 (280-300); Potassium 2.9 mEq/L (3.5-5.1); Sodium 138 mEq/L (136-145); Total Protein 6.8 g/dL (6.4-8.9); Triglycerides 138 mg/dL (< 150); eGFR For African Americans > 60 (> 60); eGFR For Non-African Americans > 60 (> 60)
[2017-07-11] MEDS: amLODIPine 5 MG TABLET PO SCH (09:35)
[2017-07-11] MEDS: Gabapentin 400 MG CAPSULE PO SCH ×4 (09:35→21:29)
[2017-07-11] MEDS: Metoprolol 100 MG TABLET PO SCH ×2 (09:35→21:28)
[2017-07-11] MEDS: Furosemide 20 MG/2 ML VIAL IVP SCH ×2 (09:36→16:57)
[2017-07-11] MEDS: Sucralfate 1 GM TABLET PO SCH ×2 (09:36→21:28)
[2017-07-11] MEDS: Levofloxacin 750 MG/150 ML 750 MG/150 ML BAG IVPB SCH (09:36)
[2017-07-11] MEDS: [Fish Oil 1,000 Mg Softgel] PO SCH ×2 (09:41→21:30)
[2017-07-11] MEDS: Acetaminophen 325 MG TABLET PO PRN (10:20)
--- NOTE | 2017-07-11 16:17 | Vascular/[facility] Progress Note ---
Date of Encounter: 07/11/17 Time of Encounter: 15:30 - Assessment and plan (1) Carotid stenosis, bilateral Status: Chronic The patient is status post right carotid endarterectomy. Her wound is healing well. She recently had a nosebleed. She may discontinue plavix. Continue with daily ASA. She may follow-up in clinic as previously scheduled. (2) Essential hypertension Status: Chronic (3) Type 2 diabetes mellitus with other circulatory complications Status: Chronic (4) Mixed hyperlipidemia Status: Chronic (5) CAD (coronary artery disease) Status: Chronic Qualifiers: Coronary Disease-Associated Artery/Lesion type: bypass graft [place] vs. transplanted heart: [place] heart Associated angina: angina presence unspecified Qualified Code(s): I25.810 - Atherosclerosis of coronary artery bypass graft(s) without angina pectoris - Subjective Interval history: Comfortable and feeling much better today. She denies chest pain or shortness of breath. - Physical Examination General: Present: Conversant Neck: Present: Other (incision healing well without erythema, drainage or hematoma). Absent: Tracheal deviation Cardiac: Present: Reg Rate and Rhythm Lungs: Present: Normal Breath Sounds Neuro: Present: Alert and responsive, No focal deficits noted Vascular: Present: Normal capillary refill. Absent: Cyanosis, Edema Abdomen: Present: Soft Results 07/11/17 04:21 07/11/17 04:21 Lab Results, Last 24 hours 07/10/17 07/10/17 07/11/17 14:48 20:35 04:21 WBC 13.2 H Hgb 11.7 Hct 36.2 Plt Count 268 Sodium Potassium Chloride Carbon Dioxide BUN Creatinine Glucose Calcium Magnesium Total Bilirubin AST ALT Alkaline Phosphatase Troponin I 0.04 H* 0.05 H* 07/11/17 04:21 WBC Hgb Hct Plt Count Sodium 138 Potassium 2.9 L Chloride 101 Carbon Dioxide 29 BUN 11 Creatinine 0.61 Glucose 109 H Calcium 8.9 Magnesium 1.5 L Total Bilirubin 1.0 AST 10 L ALT 11 Alkaline Phosphatase 46 Troponin I Consult Discharge Plan - Plan Instructions: Furosemide (By mouth), Albuterol (By mouth), Levofloxacin (By mouth), Acute Respiratory Distress Syndrome (DC), Pneumonia (DC) Referrals: Art Solomon MD [Primary Care Provider] - 07/19/17 10:15 am Prescriptions: Albuterol Sulfate [Albuterol Inhaler] 2 puff IH Q6HR PRN #1 [id number].[id number] PRN Reason: Wheezing Furosemide [Lasix] 20 mg PO BID #40 tablet Levofloxacin [Levaquin] 750 mg PO DAILY #3 tablet
--- NOTE | 2017-07-11 17:13 | Internal Med Progress Note ---
Date of Encounter: 07/11/17 Time of Encounter: 16:30 - Assessment and plan (1) Acute respiratory failure with hypoxia Current Visit: Yes Status: Acute Assessment and plan: Due to PNA + Pulmonary edema Cont empirical abx Cefepime + Levaquin sputum culture showed few bacteria step pneumonia and Legionella negative Cont hermann Duoneb + O2 try to wean her off the oxygen as she tolerates may need home O2 eval (2) Pneumonia Current Visit: Yes Status: Acute Assessment and plan: Mostly bacterial cont empirical abx Cefepime + Levaquin Qualifiers: Pneumonia type: due to unspecified organism Laterality: right Lung location: middle lobe of lung Qualified Code(s): J18.1 - Lobar pneumonia, unspecified organism (3) Pulmonary edema Current Visit: Yes Status: Acute Assessment and plan: due to pneumonia and also concerned for heart failure exacerbation 2D Echo showed preserved LVEF , mild LV Diastolic dysfunction noticed continue IV Lasix for another day strict I & O Qualifiers: Qualified Code(s): J81.0 - Acute pulmonary edema (4) Reactive airway disease with wheezing Current Visit: Yes Status: Acute Assessment and plan: Improving Continue DuoNeb no need of steroids at this point Qualifiers: Qualified Code(s): J45.20 - Mild intermittent asthma, uncomplicated (5) Elevated troponin Current Visit: Yes Status: Acute Assessment and plan: Slightly elevated Mostly due to demand ischemia no acute EKG changes noticed resumed home medications aspirin, beta orestes, Plavix and Losartan (6) CAD (coronary artery disease) Current Visit: Yes Status: Chronic Assessment and plan: Resumed home medications Qualifiers: Coronary Disease-Associated Artery/Lesion type: bypass graft [place] vs. 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 Solomon is a 66 year old female with known past medical history of hypertension, hyperlipidemia, diabetes type II, morbid obesity, CAD with status post cabbage, status post b/l carotid endarterectomy, Rt one donce recently on 07/07/[address] Li pt now admitted here for worsening SOB and Pneumonia. Pt is still on 2 lit O2..however overall she feels better today. Denied any CP. Still has some BRADEN. No cough no chills. still has mild pedal edema - Constitutional Vitals: Temp Pulse Resp BP Pulse Ox 98.7 F 66 16 148/75 96 07/11/17 17:07 07/11/17 17:07 07/11/17 17:07 07/11/17 17:07 07/11/17 17:07 General appearance: Present: A&O X 3, answers questions appropriately - Head Head exam: Present: atraumatic, normal inspection - Neck Neck exam general surgery: Present: supple - Respiratory Respiratory exam: Present: decreased breath sounds, wheezes (mild). Absent: rales, respiratory distress, rhonchi - Cardiovascular Cardiovascular exam: Present: RRR, +S1, +S2. Absent: tachycardia - GI/Abdominal GI/Abdominal exam: Present: normal bowel sounds, soft. Absent: rebound, rigid, tenderness - Extremities Exam Extremities exam: Present: pedal edema (trace). Absent: calf tenderness, tenderness - Back Exam Back exam: Absent: CVA tenderness (L), CVA tenderness (R) - Neurological Exam Neurological exam: Present: alert, oriented X3 - Psychiatric Psychiatric exam: Present: normal affect, normal mood Internal Medicine: Result - Labs CBC & Chem 7: 07/11/17 04:21 07/11/17 04:21 Labs: Short CBC 07/11/17 Range/Units 04:21 WBC 13.2 H (4.3-11.1) K/mcL Hgb 11.7 (11.5-15.4) g/dL Hct 36.2 (35.3-44.9) % Plt Count 268 (140-400) K/mcL Neutrophils # 7.2 (1.6-8.9) K/mcL BMP 07/11/17 04:21 Sodium 138 Potassium 2.9 L Chloride 101 Carbon Dioxide 29 BUN 11 Creatinine 0.61 Glucose 109 H Calcium 8.9 Cardiac Enzymes 07/10/17 Range/Units 20:35 Troponin I 0.05 H* (< 0.04) ng/mL Liver Function 07/11/17 Range/Units 04:21 Total Bilirubin 1.0 (0.3-1.0) mg/dL AST 10 L (13-39) Units/L ALT 11 (7-52) Units/L Alkaline Phosphatase 46 (34-104) Units/L Albumin 3.9 (3.5-5.7) g/dL - ABG Interpretation ABG results: PT/INR, D-dimer D-Dimer 739 ng/mLFEU (0-500) H 07/10/17 08:34 - Impressions Impressions Echocardiogram 07/10/17 10:48 Impressions: LVEF 60%. LV diastolic dysfunction with elevated filling pressures. Mild left ventricular hypertrophy. RV size not well visualized. Function appears normal. Mild mitral regurgitation. Eccentric aortic regurgitation appears mild, possibly underestimated. Suboptimal TR signal to estimate RVSP. IVC is not dilated. Left Ventricular Wall Motion: Rest Echo Findings The mid anterior septal, mid inferior lateral, basal anterior septal and basal inferior lateral [place] were not visualized. All other wall segments showed normal motion. Findings: Study Quality * Technically sub-optimal due to body habitus. ECG Findings * Normal sinus rhythm. Left Ventricle * LVEF 60%. * LV diastolic dysfunction with elevated filling pressures. * Mild concentric left ventricular hypertrophy. Right Ventricle * RV size not well visualized. Function appears normal. Left Atrium * Normal left atrial size. Right Atrium * Normal right atrial size. Mitral Valve * Normal mitral valve structure. * No mitral stenosis. * Mild mitral regurgitation. Tricuspid Valve * Tricuspid valve not well visualized. * Trace tricuspid regurgitation. Pulmonic Valve * Pulmonic valve is not well visualized. * No pulmonic stenosis. * No pulmonic regurgitation. Pulmonary Artery * Pulmonary artery not well visualized. Aorta * Normally sized aortic root. Pericardium * There is no pericardial effusion present. Aortic Valve * No aortic stenosis. * Eccentric aortic regurgitation appears mild, possibly underestimated. * Aortic valve not well visualized. Interatrial Septum * No evidence of PFO by color Doppler. IVC * Normal IVC dimensions and inspiratory collapse. Consult Discharge Plan - Plan Referrals: Art Solomon MD [Primary Care Provider] -
[2017-07-11] MEDS: Aspirin Enteric Coated 81 MG Tablet PO SCH (21:28)
[2017-07-11] MEDS: Famotidine 20 MG TABLET PO SCH (21:29)
[2017-07-11] MEDS: *HR* HYDROcodone/Acet 5/325 mg TABLET PO PRN (21:29)
[2017-07-12] MEDS: *HR* Enoxaparin 40 MG/0.4 ML SYRINGE SQ SCH (05:51)
[2017-07-12] MEDS: Cefepime HCl 1,000 MG in 0.9 % Sodium Chloride Mini Bag 100 ML IVPB SCH (05:52)
[2017-07-12] MEDS: Levofloxacin 750 MG/150 ML 750 MG/150 ML BAG IVPB SCH (07:39)
[2017-07-12] MEDS: Sucralfate 1 GM TABLET PO SCH (07:40)
[2017-07-12] MEDS: Metoprolol 100 MG TABLET PO SCH (07:40)
[2017-07-12] MEDS: Furosemide 20 MG/2 ML VIAL IVP SCH (07:40)
[2017-07-12] MEDS: amLODIPine 5 MG TABLET PO SCH (07:40)
[2017-07-12] MEDS: Acetaminophen 325 MG TABLET PO PRN (07:40)
[2017-07-12] MEDS: Gabapentin 400 MG CAPSULE PO SCH ×2 (07:40→12:11)
[2017-07-12] MEDS: [Fish Oil 1,000 Mg Softgel] PO SCH (07:41)
--- NOTE | 2017-07-12 09:40 | Discharge Summary ---
- NOTES TO OUTPATIENT PROVIDER Notes to Outpatient Provider: d/c Aldactone. Started on Lasix 20mg PO BID x 5 days then continue Daily. Check Daily weight.. If you gain more than 2 lbs, notice leg swelling take an extra dose of Lasix and call PCP. Cont taking ASA only. Plavix stopped by Dr. Li Date of Encounter: 07/12/17 Time of Encounter: 09:37 - Discharge Diagnosis (1) Acute respiratory failure with hypoxia Priority: Primary Status: Acute (2) Pneumonia Priority: Primary Status: Acute Qualifiers: Pneumonia type: due to unspecified organism Laterality: right Lung location: middle lobe of lung Qualified Code(s): J18.1 - Lobar pneumonia, unspecified organism (3) Diastolic CHF, acute Priority: Primary Status: Acute (4) Pulmonary edema Priority: Primary Status: Acute Qualifiers: Qualified Code(s): J81.0 - Acute pulmonary edema (5) Reactive airway disease with wheezing Priority: Secondary Status: Acute Qualifiers: Qualified Code(s): J45.20 - Mild intermittent asthma, uncomplicated (6) Elevated troponin Priority: Secondary Status: Acute (7) CAD (coronary artery disease) Priority: Secondary Status: Chronic Qualifiers: Coronary Disease-Associated Artery/Lesion type: bypass graft [place] vs. transplanted heart: [place] heart Associated angina: angina presence unspecified Qualified Code(s): I25.810 - Atherosclerosis of coronary artery bypass graft(s) without angina pectoris (8) Carotid stenosis, bilateral Priority: Secondary Status: Chronic (9) Essential hypertension Priority: Secondary Status: Chronic (10) Mixed hyperlipidemia Priority: Secondary Status: Chronic (11) Type 2 diabetes mellitus Priority: Secondary Status: Chronic Qualifiers: Diabetes mellitus alf insulin use: without termite exterminator helper use Diabetes mellitus complication status: with circulatory complication Diabetes mellitus complication detail: with other circulatory complications Qualified Code(s): E11.59 - Type 2 diabetes mellitus with other circulatory complications Hospital course: Ms. Solomon is a 66 year old female with known past medical history of hypertension, hyperlipidemia, diabetes type II, morbid obesity, CAD with status post cabbage, status post b/l carotid endarterectomy, Rt one donce recently on 07/07/[address] Li pt now admitted here for worsening SOB, Pulmonary edema and Pneumonia. She was started on IV Lasix and empirical abx. Her symptoms started improving slowly. She feels like she is back to baseline. Her resp viral panel, Sputum cx, Strep PNA / Legionella all came back as negative. We did stop her Aldactone here, with her age it may not be safe drug for her. Pt spo2 87% on RA at resting, does need 2 lit continuous O2. Will arrange for home O2. - Time Spent with Patient Total time spent providing and/or coordinating discharge services: - Discharge Medications Prescriptions: Albuterol Sulfate [Albuterol Inhaler] 2 puff IH Q6HR PRN #1 hfa.aer.ad PRN Reason: Wheezing Furosemide [Lasix] 20 mg PO BID #40 tablet Levofloxacin [Levaquin] 750 mg PO DAILY #3 tablet Home Medications: Acetaminophen [Tylenol] 1,300 mg PO DAILY PRN 08/14/15 [History] Aspirin [Adult Low Dose Aspirin EC] 81 mg PO HS 08/14/15 [History] Losartan Potassium [Cozaar] 50 mg PO BID 08/14/15 [History] Metoprolol [Lopressor] 100 mg PO BID 08/14/15 [History] Nitroglycerin [Nitrostat] 0.4 mg SL Q5M PRN 08/14/15 [History] [place]-3/Dha/Epa/Fish Oil [Fish Oil 1,000 mg Softgel] 1,000 mg PO BID 08/14/15 [ History] Wheat Dextrin [Benefiber] 1 tab PO TID 08/14/15 [History] metFORMIN [Glucophage] 500 mg PO BIDWM 08/14/15 [History] Amlodipine Besylate 10 mg PO DAILY #30 tablet 09/09/15 [Rx] Atorvastatin Calcium [Lipitor] 80 mg PO HS 06/18/17 [History] Calcium Carbonate/Vitamin D3 [Calcium 600 + Vit D Softgel] 1 each PO DAILY 06/18 [History] Lansoprazole [Prevacid] 30 mg PO DAILY 06/18/17 [History] Sucralfate [Carafate] 1 g PO BID 06/18/17 [History] raNITIdine HCl [Ranitidine HCl] 300 mg PO HS 06/18/17 [History] Gabapentin [Neurontin] 400 mg PO QID 07/07/17 [History] HYDROcodone/Acet 5/325 mg [[place] 5-325 mg] 1 tab PO Q6HR PRN 5 Days #20 tablet 07/08/17 [Rx] Albuterol Sulfate [Albuterol Inhaler] 2 puff IH Q6HR PRN #1 hfa.aer.ad 07/12/17 [Rx] Furosemide [Lasix] 20 mg PO BID #40 tablet 07/12/17 [Rx] Levofloxacin [Levaquin] 750 mg PO DAILY #3 tablet 07/12/17 [Rx] Allergies/Adverse Reactions: 3 Allergy/AdvReac Type Severity Reaction Status Date / Time No Known Allergies Allergy Verified 07/10/17 09:12 Date of admission: 07/10/17 10:39 Primary care physician: Art Solomon MD - Constitutional Vitals: Temp Pulse Resp BP Pulse Ox 97.4 F L 78 16 132/68 92 07/12/17 07:18 07/12/17 07:18 07/12/17 07:18 07/12/17 07:18 07/12/17 07:58 General appearance: Present: A&O X 3, answers questions appropriately - Head Head exam: Present: atraumatic, normal inspection - Respiratory Respiratory exam: Present: decreased breath sounds. Absent: rales, respiratory distress, rhonchi, wheezes - Cardiovascular Cardiovascular exam: Present: RRR, +S1, +S2. Absent: systolic murmur, tachycardia - Extremities Exam Extremities exam: Absent: calf tenderness, pedal edema, tenderness Additional comments: improved - Back Exam Back exam: Absent: CVA tenderness (L), CVA tenderness (R) - Neurological Exam Neurological exam: Present: alert, oriented X3 - Psychiatric Psychiatric exam: Present: normal affect, normal mood - Patient Status Disposition: Home, Self-Care Condition: Good Overall status at discharge: patient is back to baseline - Discharge Instructions Follow Up With: Art Solomon MD [Primary Care Provider] - - Diet and Activity Activity: increase activity as tolerated, wear oxygen at all times Diet: low salt diet
[2017-07-12 11:06] VITALS: BP 124/65
--- NOTE | 2017-07-12 19:21 | Electrocardiograph Report ---
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
== END 2017-07-12 14:04 | disposition home or self-care (01) | DRG 193 ==
LOC: EMEROO 08:10 → 2ANU 10:39 → SUATTDRO 10:39 → 2ANU 11:21
PROVIDERS: ADMIT Family Medicine; ATTEND Family Medicine

== ENCOUNTER 2019-09-06 23:08 | Observation (INO) ==
[2019-09-06] MEDS ORDERED: GI Cocktail 40 ML EACH PO ONE (23:40)
[2019-09-06] MEDS ORDERED: Isovue-370 500 ML BOTTLE IVP ONE (23:40)
[2019-09-06] MEDS ORDERED: Pantoprazole 40 MG VIAL IVP ONE (23:40)
[2019-09-07 00:15] LABS: Basophils # 0.1 K/mcL (0.0-0.2); Basophils % 0.5 %; Eosinophils # 0.2 K/mcL (0.0-0.6); Eosinophils % 1.5 %; Hematocrit 36.3 % (35.3-44.9); Hemoglobin 11.5 g/dL (11.5-15.4); Immature Granulocytes % 0.5 % (0-4); Lymphocytes % 22.6 %; Mean Corpuscular HGB Conc 31.7 g/dL (31.6-35.5); Mean Corpuscular Hemoglobin 27.4 pg (28.0-33.3); Mean Corpuscular Volume 86.4 fL (83.0-100.0); Mean Platelet Volume 10.5 fL (9.4-12.4); Monocytes # 1.1 K/mcL (0.0-1.3); Monocytes % 8.2 %; Neutrophils # 8.8 K/mcL (1.6-8.9); Platelet Count 393 K/mcL (140-400); Red Cell Distribution Width 15.1 % (11.5-14.5); Segmented Neutrophils % 66.7 %; White Blood Count 13.1 K/mcL (4.3-11.1)
[2019-09-07 00:19] LABS: Prothrombin Time 11.4 Seconds (9.4-12.1)
[2019-09-07 00:38] LABS: Alanine Aminotransferase 13 Units/L (7-52); Albumin 4.2 g/dL (3.5-5.7); Albumin/Globulin Ratio 1.4 (1.1-2.2); Alkaline Phosphatase 46 Units/L (34-104); Aspartate Amino Transferase 17 Units/L (13-39); BUN/Creatinine Ratio 32 (6-26); Bilirubin,Indirect 0.3 mg/dL (0.0-1.0); Bilirubin,Total 0.3 mg/dL (0.3-1.0); Blood Urea Nitrogen 24 mg/dL (8-23); Calcium 9.6 mg/dL (8.6-10.3); Carbon Dioxide 22 mEq/L (23-29); Chloride 101 mEq/L (98-107); Globulin 3.1 g/dL (2.4-3.5); Glucose 114 mg/dL (70-105); Lipase 61 Units/L (11-82); Osmolality,Calculated 287 (280-300); Potassium 3.7 mEq/L (3.5-5.1); Sodium 136 mEq/L (136-145); Total Protein 7.3 g/dL (6.4-8.9); Troponin I < 0.03 ng/mL (< 0.04); eGFR For African Americans > 60 (> 60); eGFR For Non-African Americans > 60 (> 60)
[2019-09-07] MEDS ORDERED: *HR* FentaNYL (PF) 100 MCG/2 ML VIAL IVP ONE (01:04)
[2019-09-07] MEDS ORDERED: Naloxone 0.4 MG/ML INJ IVP PRN (03:18)
[2019-09-07] MEDS ORDERED: Nitroglycerin 0.4 MG TAB.SUBL SL PRN (03:27)
[2019-09-07] MEDS ORDERED: D5% in Water 1,000 ML IVC PRN (03:29)
[2019-09-07] MEDS ORDERED: *HR* Dextrose 50 % in Water (Syg) 50 ML SYRINGE IVP PRN (03:29)
[2019-09-07] MEDS ORDERED: Dextrose Gel 15 GM/37.5 ML TUBE PO PRN ×2 (03:29)
[2019-09-07] MEDS ORDERED: 0.9 % Sodium Chloride 1,000 ML IVC SCH (04:00)
[2019-09-07] MEDS ORDERED: *HR* Promethazine 25 MG/ML VIAL IVP PRN (04:18)
[2019-09-07 05:09] LABS: Basophils # 0.1 K/mcL (0.0-0.2); Basophils % 0.6 %; Eosinophils # 0.1 K/mcL (0.0-0.6); Eosinophils % 1.1 %; Hematocrit 35.9 % (35.3-44.9); Hemoglobin 11.4 g/dL (11.5-15.4); Immature Granulocytes % 0.3 % (0-4); Lymphocytes # 3.5 K/mcL (0.6-4.6); Lymphocytes % 28.1 %; Mean Corpuscular HGB Conc 31.8 g/dL (31.6-35.5); Mean Corpuscular Hemoglobin 27.6 pg (28.0-33.3); Mean Corpuscular Volume 86.9 fL (83.0-100.0); Mean Platelet Volume 10.4 fL (9.4-12.4); Monocytes # 0.8 K/mcL (0.0-1.3); Monocytes % 6.1 %; Neutrophils # 7.9 K/mcL (1.6-8.9); Platelet Count 391 K/mcL (140-400); Red Blood Count 4.13 M/mcL (3.82-4.97); Red Cell Distribution Width 15.2 % (11.5-14.5); Segmented Neutrophils % 63.8 %; White Blood Count 12.4 K/mcL (4.3-11.1)
[2019-09-07 05:09] LABS: Bilirubin,Urine Negative (Negative); Blood,Urine Negative (Negative); Clarity,Urine Clear (Clear); Color,Urine Yellow (Yellow); Glucose,Urine (UA) Normal (Normal); Ketones,Urine Negative (Negative); Leukocyte Esterase,Urine Negative (Negative); Nitrite,Urine Negative (Negative); Protein,Urine Negative (Neg-Trace); Specific Gravity,Urine > 1.030 (1.010-1.025); Urobilinogen,Urine Normal (Normal)
[2019-09-07 05:28] LABS: BUN/Creatinine Ratio 31 (6-26); Blood Urea Nitrogen 22 mg/dL (8-23); Calcium 9.8 mg/dL (8.6-10.3); Carbon Dioxide 24 mEq/L (23-29); Chloride 101 mEq/L (98-107); Glucose 105 mg/dL (70-105); Osmolality,Calculated 286 (280-300); Potassium 4.1 mEq/L (3.5-5.1); Sodium 136 mEq/L (136-145); eGFR For African Americans > 60 (> 60); eGFR For Non-African Americans > 60 (> 60)
[2019-09-07] MEDS ORDERED: *HR* Heparin 5,000 UNIT/ML VIAL SQ SCH (06:00)
[2019-09-07] MEDS: WHEAT DEXTRIN PO SCH ×2 (08:02→14:26)
[2019-09-07] MEDS: Insulin LISPRO 300 UNITS/3 ML VIAL SQ SCH ×2 (08:03→11:28)
[2019-09-07] MEDS ORDERED: Sucralfate 1 GM TABLET PO SCH (09:00)
[2019-09-07] MEDS ORDERED: Furosemide 20 MG TABLET PO SCH (09:00)
[2019-09-07] MEDS ORDERED: amLODIPine 5 MG TABLET PO SCH (09:00)
[2019-09-07] MEDS ORDERED: Metoprolol 100 MG TABLET PO SCH (09:00)
[2019-09-07 10:36] VITALS: BP 104/42
[2019-09-07] MEDS ORDERED: Famotidine 20 MG TABLET PO SCH (21:00)
[2019-09-07] MEDS ORDERED: Insulin LISPRO 300 UNITS/3 ML VIAL SQ SCH (21:00)
[2019-09-07] MEDS ORDERED: Aspirin Enteric Coated 81 MG Tablet PO SCH (21:00)
== END 2019-09-07 16:01 | disposition home or self-care (01) ==
LOC: 2ANU 23:08 → EMEROOARM 23:08 → 2ANU 09-07 02:09
PROVIDERS: ADMIT Internal Medicine; ATTEND Internal Medicine

== ENCOUNTER 2019-11-03 15:35 | Inpatient (IN) ==
[2019-11-03] MEDS ORDERED: 0.9 % Sodium Chloride 1,000 ML IVC ONE (16:04)
[2019-11-03 16:25] LABS: Basophils % 0.3 %; Immature Granulocytes % 0.8 % (0-4); Lymphocytes # 2.3 K/mcL (0.6-4.6); Lymphocytes % 18.9 %; Mean Corpuscular HGB Conc 29.7 g/dL (31.6-35.5); Mean Corpuscular Hemoglobin 24.3 pg (28.0-33.3); Mean Corpuscular Volume 81.7 fL (83.0-100.0); Mean Platelet Volume 10.2 fL (9.4-12.4); Monocytes # 1.2 K/mcL (0.0-1.3); Neutrophils # 8.7 K/mcL (1.6-8.9); Nucleated Red Blood Cells 1.1 /100 WBC (0); Platelet Count 434 K/mcL (140-400); Red Blood Count 1.69 M/mcL (3.82-4.97); Red Cell Distribution Width 17.4 % (11.5-14.5); White Blood Count 12.4 K/mcL (4.3-11.1)
[2019-11-03 16:32] LABS: Hematocrit 13.8 % (35.3-44.9); Hemoglobin 4.1 g/dL (11.5-15.4)
[2019-11-03 16:42] LABS: Alanine Aminotransferase 16 Units/L (7-52); Albumin 3.4 g/dL (3.5-5.7); Albumin/Globulin Ratio 1.4 (1.1-2.2); Alkaline Phosphatase 48 Units/L (34-104); Aspartate Amino Transferase 21 Units/L (13-39); BUN/Creatinine Ratio 43 (6-26); Bilirubin,Total 0.5 mg/dL (0.3-1.0); Blood Urea Nitrogen 38 mg/dL (8-23); Carbon Dioxide 17 mEq/L (23-29); Chloride 109 mEq/L (98-107); Globulin 2.5 g/dL (2.4-3.5); Glucose 126 mg/dL (70-105); Magnesium 1.8 mg/dL (1.6-2.6); Osmolality,Calculated 301 (280-300); Phosphorous 3.7 mg/dL (2.7-4.5); Potassium 4.9 mEq/L (3.5-5.1); Sodium 140 mEq/L (136-145); Total Protein 5.9 g/dL (6.4-8.9); Troponin I < 0.03 ng/mL (< 0.04); eGFR For African Americans > 60 (> 60); eGFR For Non-African Americans > 60 (> 60)
[2019-11-03 16:53] LABS: INR 1.4; Prothrombin Time 15.6 Seconds (9.4-12.1)
[2019-11-03 17:23] LABS: Bilirubin,Urine Negative (Negative); Blood,Urine Negative (Negative); Clarity,Urine Clear (Clear); Color,Urine Colorless (Yellow); Glucose,Urine (UA) Normal (Normal); Ketones,Urine 10 mg/dL (Negative); Leukocyte Esterase,Urine Negative (Negative); Nitrite,Urine Negative (Negative); Protein,Urine Negative (Neg-Trace); Specific Gravity,Urine 1.014 (1.010-1.025); Urobilinogen,Urine Normal (Normal)
[2019-11-03] MEDS ORDERED: 0.9 % Sodium Chloride 250 ML ONE ×2 (17:27→21:17)
[2019-11-03] MEDS ORDERED: Pantoprazole 40 MG VIAL IVP ONE (17:50)
[2019-11-03] MEDS ORDERED: Acetaminophen 325 MG TABLET PO PRN (18:58)
[2019-11-03] MEDS ORDERED: Nitroglycerin 0.4 MG TAB.SUBL SL PRN (18:58)
[2019-11-03] MEDS ORDERED: Famotidine 20 MG TABLET PO PRN (18:58)
[2019-11-03] MEDS ORDERED: Metoprolol 100 MG TABLET PO SCH (21:00)
[2019-11-03] MEDS ORDERED: Melatonin 3 MG TABLET PO PRN (21:53)
[2019-11-04 01:42] LABS: Hematocrit 20.7 % (35.3-44.9); Hemoglobin 6.5 g/dL (11.5-15.4)
[2019-11-04] MEDS ORDERED: 0.9 % Sodium Chloride 250 ML ONE (03:33)
[2019-11-04 03:47] LABS: Basophils # 0.1 K/mcL (0.0-0.2); Basophils % 0.6 %; Eosinophils % 0.2 %; Hematocrit 19.6 % (35.3-44.9); Hemoglobin 6.3 g/dL (11.5-15.4); Immature Granulocytes % 0.7 % (0-4); Lymphocytes # 3.5 K/mcL (0.6-4.6); Lymphocytes % 22.9 %; Mean Corpuscular HGB Conc 32.1 g/dL (31.6-35.5); Mean Corpuscular Hemoglobin 26.6 pg (28.0-33.3); Mean Corpuscular Volume 82.7 fL (83.0-100.0); Mean Platelet Volume 10.2 fL (9.4-12.4); Monocytes # 1.8 K/mcL (0.0-1.3); Monocytes % 11.6 %; Neutrophils # 9.7 K/mcL (1.6-8.9); Nucleated Red Blood Cells 0.7 /100 WBC (0); Platelet Count 384 K/mcL (140-400); Red Blood Count 2.37 M/mcL (3.82-4.97); White Blood Count 15.1 K/mcL (4.3-11.1)
[2019-11-04 04:07] LABS: BUN/Creatinine Ratio 45 (6-26); Blood Urea Nitrogen 35 mg/dL (8-23); Calcium 8.3 mg/dL (8.6-10.3); Carbon Dioxide 21 mEq/L (23-29); Chloride 107 mEq/L (98-107); Glucose 98 mg/dL (70-105); Osmolality,Calculated 292 (280-300); Potassium 3.8 mEq/L (3.5-5.1); Sodium 137 mEq/L (136-145); eGFR For African Americans > 60 (> 60); eGFR For Non-African Americans > 60 (> 60)
[2019-11-04] MEDS ORDERED: Famotidine 20 MG TABLET PO PRN (08:47)
[2019-11-04] MEDS ORDERED: Acetaminophen 325 MG TABLET PO PRN (08:47)
[2019-11-04] MEDS ORDERED: Melatonin 3 MG TABLET PO PRN (08:47)
[2019-11-04] MEDS ORDERED: Nitroglycerin 0.4 MG TAB.SUBL SL PRN (08:47)
[2019-11-04] MEDS ORDERED: Furosemide 20 MG TABLET PO SCH (09:00)
[2019-11-04] MEDS: Furosemide 20 MG TABLET PO SCH (10:04)
[2019-11-04] MEDS: Metoprolol 100 MG TABLET PO SCH ×2 (10:04→20:05)
[2019-11-04 10:26] LABS: Hematocrit 25.4 % (35.3-44.9); Hemoglobin 8.2 g/dL (11.5-15.4)
[2019-11-05] MEDS ORDERED: Lidocaine -MPF 2% 2 ML VIAL ONE (07:29)
[2019-11-05] MEDS: Metoprolol 100 MG TABLET PO SCH ×2 (07:36→20:34)
[2019-11-05] MEDS: Furosemide 20 MG TABLET PO SCH (07:36)
[2019-11-05] MEDS ORDERED: *HR* PHENYLEPHRINE 1,000 MCG/10 ML SYRINGE IVP ONE (08:36)
[2019-11-05] MEDS ORDERED: EPHEDrine 50 MG/ML VIAL ONE (08:37)
[2019-11-05] MEDS ORDERED: Simethicone 40 MG/0.6 ML MLS IR ONE (08:44)
[2019-11-05] MEDS ORDERED: Ringers Solution, Lactated 1,000 ML IVC SCH (08:45)
[2019-11-05] MEDS ORDERED: *HR* Propofol 200 MG/20 ML VIAL IVP ONE (08:48)
[2019-11-05 10:29] LABS: Basophils # 0.1 K/mcL (0.0-0.2); Basophils % 0.5 %; Eosinophils # 0.3 K/mcL (0.0-0.6); Eosinophils % 2.1 %; Hematocrit 28.8 % (35.3-44.9); Immature Granulocytes % 0.5 % (0-4); Lymphocytes # 1.9 K/mcL (0.6-4.6); Lymphocytes % 14.2 %; Mean Corpuscular HGB Conc 31.3 g/dL (31.6-35.5); Mean Corpuscular Volume 86.5 fL (83.0-100.0); Monocytes # 1.3 K/mcL (0.0-1.3); Monocytes % 9.6 %; Neutrophils # 9.7 K/mcL (1.6-8.9); Platelet Count 417 K/mcL (140-400); Red Blood Count 3.33 M/mcL (3.82-4.97); Red Cell Distribution Width 16.5 % (11.5-14.5); Segmented Neutrophils % 73.1 %; White Blood Count 13.2 K/mcL (4.3-11.1)
[2019-11-05] MEDS ORDERED: Dextrose Gel 15 GM/37.5 ML TUBE PO PRN ×2 (15:03)
[2019-11-05] MEDS ORDERED: D5% in Water 1,000 ML IVC PRN (15:03)
[2019-11-05] MEDS ORDERED: *HR* Dextrose 50 % in Water (Vial) 50 ML VIAL IVP PRN (15:03)
[2019-11-05] MEDS: Insulin LISPRO 300 UNITS/3 ML VIAL SQ SCH ×2 (16:37→20:34)
[2019-11-05] MEDS: Sucralfate 1 GM TABLET PO SCH (16:42)
[2019-11-06 04:19] LABS: Hematocrit 25.1 % (35.3-44.9); Mean Corpuscular HGB Conc 31.9 g/dL (31.6-35.5); Mean Corpuscular Hemoglobin 27.7 pg (28.0-33.3); Mean Corpuscular Volume 86.9 fL (83.0-100.0); Mean Platelet Volume 10.3 fL (9.4-12.4); Platelet Count 374 K/mcL (140-400); Red Blood Count 2.89 M/mcL (3.82-4.97); Red Cell Distribution Width 16.5 % (11.5-14.5); White Blood Count 9.8 K/mcL (4.3-11.1)
[2019-11-06] MEDS: Insulin LISPRO 300 UNITS/3 ML VIAL SQ SCH ×4 (08:14→20:59)
[2019-11-06] MEDS: Sucralfate 1 GM TABLET PO SCH ×3 (08:28→20:59)
[2019-11-06] MEDS: Metoprolol 100 MG TABLET PO SCH ×2 (08:28→20:59)
[2019-11-06] MEDS: Furosemide 20 MG TABLET PO SCH (08:28)
[2019-11-06] MEDS ORDERED: amLODIPine 5 MG TABLET PO SCH (09:00)
[2019-11-07] MEDS: Insulin LISPRO 300 UNITS/3 ML VIAL SQ SCH ×4 (07:35→20:07)
[2019-11-07] MEDS: Sucralfate 1 GM TABLET PO SCH ×4 (07:41→21:06)
[2019-11-07] MEDS: Furosemide 20 MG TABLET PO SCH (07:41)
[2019-11-07] MEDS: Metoprolol 100 MG TABLET PO SCH (07:41)
[2019-11-07 09:35] LABS: Hematocrit 30.7 % (35.3-44.9); Hemoglobin 9.5 g/dL (11.5-15.4); Mean Corpuscular HGB Conc 30.9 g/dL (31.6-35.5); Mean Corpuscular Hemoglobin 26.9 pg (28.0-33.3); Platelet Count 437 K/mcL (140-400); Red Blood Count 3.53 M/mcL (3.82-4.97); Red Cell Distribution Width 16.5 % (11.5-14.5); White Blood Count 8.8 K/mcL (4.3-11.1)
[2019-11-07 10:56] LABS: Basophils % 0.4 %; Eosinophils # 0.1 K/mcL (0.0-0.6); Eosinophils % 1.6 %; Hematocrit 28.6 % (35.3-44.9); Hemoglobin 8.9 g/dL (11.5-15.4); Immature Granulocytes % 0.5 % (0-4); Lymphocytes % 12.4 %; Mean Corpuscular HGB Conc 31.1 g/dL (31.6-35.5); Mean Corpuscular Volume 86.7 fL (83.0-100.0); Mean Platelet Volume 9.9 fL (9.4-12.4); Monocytes # 0.9 K/mcL (0.0-1.3); Monocytes % 11.2 %; Neutrophils # 6.2 K/mcL (1.6-8.9); Nucleated Red Blood Cells 0.2 /100 WBC (0); Platelet Count 414 K/mcL (140-400); Red Cell Distribution Width 16.3 % (11.5-14.5); Segmented Neutrophils % 73.9 %; White Blood Count 8.4 K/mcL (4.3-11.1)
[2019-11-07] MEDS: Sennosides/Docusate Sodium TABLET PO PRN (13:31)
[2019-11-08] MEDS: Sennosides/Docusate Sodium TABLET PO PRN (01:37)
[2019-11-08] MEDS: Insulin LISPRO 300 UNITS/3 ML VIAL SQ SCH ×3 (07:43→15:59)
[2019-11-08 08:00] LABS: Basophils # 0.1 K/mcL (0.0-0.2); Basophils % 0.7 %; Eosinophils # 0.1 K/mcL (0.0-0.6); Eosinophils % 1.7 %; Hematocrit 25.2 % (35.3-44.9); Hemoglobin 7.7 g/dL (11.5-15.4); Immature Granulocytes % 0.1 % (0-4); Lymphocytes # 1.7 K/mcL (0.6-4.6); Lymphocytes % 24.4 %; Mean Corpuscular HGB Conc 30.6 g/dL (31.6-35.5); Mean Corpuscular Hemoglobin 26.8 pg (28.0-33.3); Mean Corpuscular Volume 87.8 fL (83.0-100.0); Mean Platelet Volume 10.2 fL (9.4-12.4); Monocytes # 1.1 K/mcL (0.0-1.3); Monocytes % 15.8 %; Platelet Count 334 K/mcL (140-400); Red Blood Count 2.87 M/mcL (3.82-4.97); Red Cell Distribution Width 16.5 % (11.5-14.5); Segmented Neutrophils % 57.3 %
[2019-11-08] MEDS: Furosemide 20 MG TABLET PO SCH (08:44)
[2019-11-08] MEDS: Sucralfate 1 GM TABLET PO SCH ×2 (08:44→11:56)
[2019-11-08 11:42] LABS: % Iron Saturation 3 % (15-50); Iron 12 mcg/dL (50-170); Transferrin 295 mg/dL (203-362)
[2019-11-08 13:01] LABS: Hemoglobin 8.5 g/dL (11.5-15.4)
[2019-11-08] MEDS ORDERED: Iron Sucrose Complex 200 MG in 0.9 % Sodium Chloride 100 ML IVPB ONE (13:08)
[2019-11-08 15:41] VITALS: BP 181/49
== END 2019-11-08 16:48 | disposition home or self-care (01) | DRG 378 ==
LOC: EMEROOARM 15:35 → ICNU 15:35 → SUATTDRO 20:21 → OBSVTOIN 20:21 → 2ANU 11-04 13:03
PROVIDERS: ADMIT Family Medicine; ATTEND Internal Medicine
PROC: ENDOEBX (2019-11-05 08:00)

== ENCOUNTER 2019-11-26 22:25 | Inpatient (IN) ==
[2019-11-26] MEDS ORDERED: Isovue-370 500 ML BOTTLE IVP ONE (23:00)
[2019-11-26] MEDS ORDERED: Pantoprazole 40 MG VIAL IVP ONE (23:00)
[2019-11-26 23:34] LABS: INR 1.1; Prothrombin Time 12.2 Seconds (9.4-12.1)
[2019-11-26 23:37] LABS: Activated Partial Thrombo Time 27.2 Seconds (26.0-36.0)
[2019-11-26 23:39] LABS: Basophils # 0.1 K/mcL (0.0-0.2); Basophils % 0.5 %; Eosinophils # 0.1 K/mcL (0.0-0.6); Eosinophils % 1.1 %; Hematocrit 24.8 % (35.3-44.9); Hemoglobin 7.5 g/dL (11.5-15.4); Immature Granulocytes % 0.4 % (0-4); Lymphocytes # 1.8 K/mcL (0.6-4.6); Lymphocytes % 15.4 %; Mean Corpuscular HGB Conc 30.2 g/dL (31.6-35.5); Mean Corpuscular Hemoglobin 27.7 pg (28.0-33.3); Mean Corpuscular Volume 91.5 fL (83.0-100.0); Mean Platelet Volume 10.6 fL (9.4-12.4); Monocytes # 0.7 K/mcL (0.0-1.3); Monocytes % 5.8 %; Neutrophils # 8.8 K/mcL (1.6-8.9); Platelet Count 502 K/mcL (140-400); Red Blood Count 2.71 M/mcL (3.82-4.97); Red Cell Distribution Width 17.2 % (11.5-14.5); Segmented Neutrophils % 76.8 %
[2019-11-26 23:40] LABS: White Blood Count 11.4 K/mcL (4.3-11.1)
[2019-11-26 23:50] LABS: BUN/Creatinine Ratio 38 (6-26); Blood Urea Nitrogen 34 mg/dL (8-23); Calcium 8.9 mg/dL (8.6-10.3); Carbon Dioxide 21 mEq/L (23-29); Chloride 105 mEq/L (98-107); Glucose 162 mg/dL (70-105); Osmolality,Calculated 295 (280-300); Potassium 4.1 mEq/L (3.5-5.1); Sodium 137 mEq/L (136-145); eGFR For African Americans > 60 (> 60); eGFR For Non-African Americans > 60 (> 60)
[2019-11-26 23:51] LABS: Troponin I < 0.03 ng/mL (< 0.04)
[2019-11-27] MEDS ORDERED: Ondansetron 4 MG/2 ML VIAL IVP STA (00:28)
[2019-11-27 01:14] LABS: Adenovirus Not Detected (Not Detect); Bordetella Pertussis Not Detected (Not Detect); Chlamydophila pneumoniae Not Detected (Not Detect); Coronavirus 229E Not Detected (Not Detect); Coronavirus HKU1 Not Detected (Not Detect); Coronavirus NL63 Not Detected (Not Detect); Coronavirus OC43 Not Detected (Not Detect); Human Metapneumovirus Not Detected (Not Detect); Human Rhinovirus/Enterovirus Not Detected (Not Detect); Influenza A Subtype 2009 H1 Not Detected (Not Detect); Influenza B Not Detected (Not Detect); Mycoplasma pneumoniae Not Detected (Not Detect); Parainfluenza Virus 1 Not Detected (Not Detect); Parainfluenza Virus 2 Not Detected (Not Detect); Parainfluenza Virus 3 Not Detected (Not Detect); Parainfluenza Virus 4 Not Detected (Not Detect); Respiratory Syncytial Virus Not Detected (Not Detect); SARS-CoV-2 Not Detected (Not Detect)
[2019-11-27 04:48] LABS: Bilirubin,Urine Negative (Negative); Blood,Urine Negative (Negative); Clarity,Urine Clear (Clear); Color,Urine Colorless (Yellow); Glucose,Urine (UA) Normal (Normal); Ketones,Urine Negative (Negative); Leukocyte Esterase,Urine Negative (Negative); Nitrite,Urine Negative (Negative); Protein,Urine Trace mg/dL (Neg-Trace); Specific Gravity,Urine > 1.030 (1.010-1.025); Urobilinogen,Urine Normal (Normal)
[2019-11-27] MEDS ORDERED: Naloxone 0.4 MG/ML INJ IVP PRN (06:51)
[2019-11-27] MEDS ORDERED: Ondansetron 4 MG/2 ML VIAL IVP PRN (07:16)
[2019-11-27 08:08] LABS: Hematocrit 24.3 % (35.3-44.9); Hemoglobin 7.4 g/dL (11.5-15.4); Mean Corpuscular HGB Conc 30.5 g/dL (31.6-35.5); Mean Corpuscular Hemoglobin 27.5 pg (28.0-33.3); Mean Corpuscular Volume 90.3 fL (83.0-100.0); Mean Platelet Volume 10.3 fL (9.4-12.4); Platelet Count 473 K/mcL (140-400); Red Blood Count 2.69 M/mcL (3.82-4.97); Red Cell Distribution Width 17.1 % (11.5-14.5); White Blood Count 12.1 K/mcL (4.3-11.1)
[2019-11-27 09:31] LABS: BUN/Creatinine Ratio 46 (6-26); Blood Urea Nitrogen 37 mg/dL (8-23); Calcium 8.7 mg/dL (8.6-10.3); Carbon Dioxide 24 mEq/L (23-29); Chloride 106 mEq/L (98-107); Glucose 106 mg/dL (70-105); Osmolality,Calculated 295 (280-300); Potassium 4.2 mEq/L (3.5-5.1); Sodium 138 mEq/L (136-145); eGFR For African Americans > 60 (> 60); eGFR For Non-African Americans > 60 (> 60)
[2019-11-27] MEDS ORDERED: *HR* FentaNYL (PF) 100 MCG/2 ML VIAL ONE (10:28)
[2019-11-27] MEDS ORDERED: *HR* Propofol 200 MG/20 ML VIAL IVP ONE (10:28)
[2019-11-27 15:54] LABS: C-Reactive Protein < 5 mg/L (Less than 10)
[2019-11-27] MEDS: Pantoprazole 40 MG VIAL IVP SCH (17:55)
[2019-11-28 03:03] LABS: Hematocrit 21.2 % (35.3-44.9); Hemoglobin 6.2 g/dL (11.5-15.4); Mean Corpuscular HGB Conc 29.2 g/dL (31.6-35.5); Mean Corpuscular Hemoglobin 27.2 pg (28.0-33.3); Mean Platelet Volume 10.3 fL (9.4-12.4); Platelet Count 418 K/mcL (140-400); Red Blood Count 2.28 M/mcL (3.82-4.97); Red Cell Distribution Width 16.9 % (11.5-14.5); White Blood Count 11.7 K/mcL (4.3-11.1)
[2019-11-28 03:12] LABS: BUN/Creatinine Ratio 42 (6-26); Blood Urea Nitrogen 30 mg/dL (8-23); Calcium 8.7 mg/dL (8.6-10.3); Carbon Dioxide 24 mEq/L (23-29); Chloride 107 mEq/L (98-107); Glucose 116 mg/dL (70-105); Osmolality,Calculated 293 (280-300); Potassium 3.9 mEq/L (3.5-5.1); Sodium 138 mEq/L (136-145); eGFR For African Americans > 60 (> 60); eGFR For Non-African Americans > 60 (> 60)
[2019-11-28] MEDS: Pantoprazole 40 MG VIAL IVP SCH (06:09)
[2019-11-28] MEDS ORDERED: 0.9 % Sodium Chloride 250 ML IVC SCH (08:45)
[2019-11-28] MEDS ORDERED: Ondansetron 4 MG/2 ML VIAL IVP PRN (08:51)
[2019-11-28] MEDS ORDERED: 0.9 % Sodium Chloride 1,000 ML IVC ONE (08:51)
[2019-11-28] MEDS: Pantoprazole 40 MG in 0.9 % Sodium Chloride Mini Bag 100 ML IVC SCH ×3 (09:13→18:45)
[2019-11-28] MEDS ORDERED: 0.9 % Sodium Chloride 250 ML ONE ×2 (09:17→13:13)
[2019-11-28 09:24] LABS: Hematocrit 21.7 % (35.3-44.9); Hemoglobin 6.5 g/dL (11.5-15.4)
[2019-11-28] MEDS ORDERED: Nitroglycerin 1 INCH/GM PACKET TP ONE (10:12)
[2019-11-28] MEDS ORDERED: Nitroglycerin 0.4 MG TAB.SUBL SL ONE (12:02)
[2019-11-28] MEDS ORDERED: *HR* FentaNYL (PF) 100 MCG/2 ML VIAL IVP ONE (12:09)
[2019-11-28 17:32] LABS: Hemoglobin 8.9 g/dL (11.5-15.4)
[2019-11-28] MEDS ORDERED: Acetaminophen IV 1,000 MG/100 ML BAG IVPB ONE (21:45)
[2019-11-29] MEDS: Pantoprazole 40 MG in 0.9 % Sodium Chloride Mini Bag 100 ML IVC SCH ×3 (00:01→09:48)
[2019-11-29 01:13] LABS: Hematocrit 27.1 % (35.3-44.9); Hemoglobin 8.6 g/dL (11.5-15.4)
[2019-11-29] MEDS ORDERED: *HR* Metoprolol 5 MG/5 ML VIAL IVP ONE (05:10)
[2019-11-29] MEDS ORDERED: *HR* HYDROcodone/Acet 5/325 mg TABLET PO ONE (05:45)
[2019-11-29] MEDS ORDERED: 0.9 % Sodium Chloride 1,000 ML IVC ONE (08:35)
[2019-11-29 10:37] LABS: Hematocrit 29.1 % (35.3-44.9); Hemoglobin 9.2 g/dL (11.5-15.4); Mean Corpuscular HGB Conc 31.6 g/dL (31.6-35.5); Mean Corpuscular Hemoglobin 28.8 pg (28.0-33.3); Mean Corpuscular Volume 91.2 fL (83.0-100.0); Mean Platelet Volume 10.4 fL (9.4-12.4); Platelet Count 376 K/mcL (140-400); Red Blood Count 3.19 M/mcL (3.82-4.97); Red Cell Distribution Width 15.7 % (11.5-14.5); White Blood Count 14.1 K/mcL (4.3-11.1)
[2019-11-29 10:57] LABS: Blood Urea Nitrogen 14 mg/dL (8-23); Calcium 8.4 mg/dL (8.6-10.3); Carbon Dioxide 25 mEq/L (23-29); Chloride 106 mEq/L (98-107); Glucose 120 mg/dL (70-105); Osmolality,Calculated 290 (280-300); Potassium 3.7 mEq/L (3.5-5.1); Sodium 139 mEq/L (136-145)
[2019-11-29 11:40] LABS: BUN/Creatinine Ratio 25 (6-26); eGFR For African Americans > 60 (> 60); eGFR For Non-African Americans > 60 (> 60)
[2019-11-29] MEDS: Pantoprazole 40 MG VIAL IVP SCH (17:32)
[2019-11-30 02:30] LABS: Hemoglobin 8.3 g/dL (11.5-15.4); Mean Corpuscular HGB Conc 31.9 g/dL (31.6-35.5); Mean Corpuscular Hemoglobin 28.8 pg (28.0-33.3); Mean Corpuscular Volume 90.3 fL (83.0-100.0); Mean Platelet Volume 9.8 fL (9.4-12.4); Platelet Count 346 K/mcL (140-400); Red Blood Count 2.88 M/mcL (3.82-4.97); Red Cell Distribution Width 15.5 % (11.5-14.5); White Blood Count 16.6 K/mcL (4.3-11.1)
[2019-11-30 02:49] LABS: BUN/Creatinine Ratio 16 (6-26); Blood Urea Nitrogen 9 mg/dL (8-23); Calcium 8.3 mg/dL (8.6-10.3); Carbon Dioxide 25 mEq/L (23-29); Chloride 105 mEq/L (98-107); Glucose 107 mg/dL (70-105); Osmolality,Calculated 285 (280-300); Potassium 3.3 mEq/L (3.5-5.1); Sodium 138 mEq/L (136-145); eGFR For African Americans > 60 (> 60); eGFR For Non-African Americans > 60 (> 60)
[2019-11-30] MEDS: Pantoprazole 40 MG VIAL IVP SCH ×2 (06:05→19:55)
[2019-11-30 09:54] LABS: Hematocrit 28.7 % (35.3-44.9)
[2019-11-30 10:26] LABS: Troponin I 0.08 ng/mL (< 0.04)
[2019-11-30] MEDS ORDERED: Perflutren Lipid Microsphere 1.3 ML in 0.9 % Sodium Chloride 8.7 ML IVP PRN (10:46)
[2019-11-30 15:19] LABS: Hematocrit 30.9 % (35.3-44.9); Hemoglobin 9.8 g/dL (11.5-15.4)
[2019-11-30 21:22] LABS: Hematocrit 28.4 % (35.3-44.9); Hemoglobin 9.1 g/dL (11.5-15.4)
[2019-12-01 04:00] LABS: Hematocrit 29.6 % (35.3-44.9); Hemoglobin 9.4 g/dL (11.5-15.4); Mean Corpuscular HGB Conc 31.8 g/dL (31.6-35.5); Mean Corpuscular Hemoglobin 29.3 pg (28.0-33.3); Mean Corpuscular Volume 92.2 fL (83.0-100.0); Mean Platelet Volume 10.4 fL (9.4-12.4); Platelet Count 393 K/mcL (140-400); Red Blood Count 3.21 M/mcL (3.82-4.97); Red Cell Distribution Width 15.6 % (11.5-14.5); White Blood Count 13.4 K/mcL (4.3-11.1)
[2019-12-01 04:16] LABS: BUN/Creatinine Ratio 15 (6-26); Blood Urea Nitrogen 10 mg/dL (8-23); Calcium 9.4 mg/dL (8.6-10.3); Carbon Dioxide 26 mEq/L (23-29); Chloride 103 mEq/L (98-107); Glucose 104 mg/dL (70-105); Osmolality,Calculated 289 (280-300); Potassium 3.2 mEq/L (3.5-5.1); Sodium 140 mEq/L (136-145); eGFR For African Americans > 60 (> 60); eGFR For Non-African Americans > 60 (> 60)
[2019-12-01] MEDS: Pantoprazole 40 MG VIAL IVP SCH ×2 (05:40→17:05)
[2019-12-01 11:38] LABS: Parietal Cell IgG 2.9 Units (0.0-24.9)
[2019-12-01 12:16] LABS: Bilirubin,Urine Negative (Negative); Blood,Urine Negative (Negative); Clarity,Urine Clear (Clear); Color,Urine Yellow (Yellow); Glucose,Urine (UA) Normal (Normal); Ketones,Urine Negative (Negative); Leukocyte Esterase,Urine Negative (Negative); Mucus,Urine Few per lpf (None-Few); Nitrite,Urine Negative (Negative); Protein,Urine 50 mg/dL (Neg-Trace); RBC,Urine 0-3 per hpf (0-3); Specific Gravity,Urine 1.015 (1.010-1.025); Squamous Epithelial Cell,Urine Few per hpf (None-Few); Urobilinogen,Urine Normal (Normal)
[2019-12-02 02:35] LABS: Hematocrit 27.1 % (35.3-44.9); Hemoglobin 8.4 g/dL (11.5-15.4); Mean Corpuscular Hemoglobin 28.1 pg (28.0-33.3); Mean Corpuscular Volume 90.6 fL (83.0-100.0); Mean Platelet Volume 10.1 fL (9.4-12.4); Platelet Count 365 K/mcL (140-400); Red Blood Count 2.99 M/mcL (3.82-4.97); Red Cell Distribution Width 15.4 % (11.5-14.5); White Blood Count 10.4 K/mcL (4.3-11.1)
[2019-12-02 02:54] LABS: BUN/Creatinine Ratio 23 (6-26); Blood Urea Nitrogen 16 mg/dL (8-23); Carbon Dioxide 26 mEq/L (23-29); Chloride 104 mEq/L (98-107); Glucose 108 mg/dL (70-105); Osmolality,Calculated 290 (280-300); Potassium 3.6 mEq/L (3.5-5.1); Sodium 139 mEq/L (136-145); eGFR For African Americans > 60 (> 60); eGFR For Non-African Americans > 60 (> 60)
[2019-12-02] MEDS: Pantoprazole 40 MG VIAL IVP SCH (05:50)
[2019-12-02 08:02] VITALS: BP 123/61
== END 2019-12-02 10:40 | disposition home or self-care (01) | DRG 377 ==
LOC: EMEROOARM 22:25 → ICNU 22:25 → 3BNU 11-27 18:28 → SUATTDRO 11-28 12:56
PROVIDERS: ADMIT Internal Medicine; ATTEND Internal Medicine
PROC: ENDOEBX (2019-11-27 13:00)

== ENCOUNTER 2020-02-03 10:22 | Inpatient (IN) ==
[2020-02-03 12:24] LABS: Eosinophils % 0.1 %
[2020-02-03 12:26] LABS: Basophils # 0.1 K/mcL (0.0-0.2); Basophils % 0.5 %; Hematocrit 26.1 % (35.3-44.9); Hemoglobin 7.8 g/dL (11.5-15.4); Immature Granulocytes % 0.4 % (0-4); Lymphocytes # 1.2 K/mcL (0.6-4.6); Lymphocytes % 8.8 %; Mean Corpuscular HGB Conc 29.9 g/dL (31.6-35.5); Mean Corpuscular Hemoglobin 29.7 pg (28.0-33.3); Mean Corpuscular Volume 99.2 fL (83.0-100.0); Mean Platelet Volume 11.6 fL (9.4-12.4); Monocytes # 0.4 K/mcL (0.0-1.3); Monocytes % 2.6 %; Neutrophils # 11.7 K/mcL (1.6-8.9); Platelet Count 294 K/mcL (140-400); Red Blood Count 2.63 M/mcL (3.82-4.97); Segmented Neutrophils % 87.6 %; White Blood Count 13.4 K/mcL (4.3-11.1)
[2020-02-03 12:39] LABS: INR 1.1; Prothrombin Time 12.4 Seconds (9.4-12.1)
[2020-02-03 12:41] LABS: Activated Partial Thrombo Time 25.4 Seconds (26.0-36.0)
[2020-02-03 12:46] LABS: BUN/Creatinine Ratio 47 (6-26); Blood Urea Nitrogen 41 mg/dL (8-23); Calcium 8.9 mg/dL (8.6-10.3); Carbon Dioxide 22 mEq/L (23-29); Chloride 109 mEq/L (98-107); Glucose 140 mg/dL (70-105); Osmolality,Calculated 304 (280-300); Potassium 4.6 mEq/L (3.5-5.1); Sodium 141 mEq/L (136-145); eGFR For African Americans > 60 (> 60); eGFR For Non-African Americans > 60 (> 60)
[2020-02-03 12:47] LABS: Anisocytosis 1+ (Not Present); Platelet Estimate Normal (Normal); Troponin I < 0.03 ng/mL (< 0.04)
[2020-02-03] MEDS ORDERED: Pantoprazole 40 MG VIAL IVP ONE (12:59)
[2020-02-03] MEDS ORDERED: Ondansetron 4 MG/2 ML VIAL IVP STA (12:59)
[2020-02-03] MEDS ORDERED: *HR* FentaNYL (PF) 100 MCG/2 ML VIAL IVP ONE (13:05)
[2020-02-03] MEDS ORDERED: 0.9 % Sodium Chloride 250 ML ONE ×2 (13:37→17:26)
[2020-02-03] MEDS: Pantoprazole 40 MG in 0.9 % Sodium Chloride Mini Bag 100 ML IVC SCH ×2 (13:49→18:59)
[2020-02-03] MEDS ORDERED: Naloxone 0.4 MG/ML INJ IVP PRN (14:12)
[2020-02-03] MEDS ORDERED: Ondansetron 4 MG/2 ML VIAL IVP PRN (14:12)
[2020-02-03] MEDS ORDERED: Metoclopramide 10 MG/2 ML VIAL IVP STA (14:38)
[2020-02-03] MEDS ORDERED: Perflutren Lipid Microsphere 1.3 ML in 0.9 % Sodium Chloride 8.7 ML IVP PRN (15:18)
[2020-02-03 15:43] LABS: Adenovirus Not Detected (Not Detect); Bordetella Pertussis Not Detected (Not Detect); Chlamydophila pneumoniae Not Detected (Not Detect); Coronavirus 229E Not Detected (Not Detect); Coronavirus HKU1 Not Detected (Not Detect); Coronavirus NL63 Not Detected (Not Detect); Coronavirus OC43 Not Detected (Not Detect); Human Metapneumovirus Not Detected (Not Detect); Human Rhinovirus/Enterovirus Not Detected (Not Detect); Influenza A Subtype 2009 H1 Not Detected (Not Detect); Influenza B Not Detected (Not Detect); Mycoplasma pneumoniae Not Detected (Not Detect); Parainfluenza Virus 1 Not Detected (Not Detect); Parainfluenza Virus 2 Not Detected (Not Detect); Parainfluenza Virus 3 Not Detected (Not Detect); Parainfluenza Virus 4 Not Detected (Not Detect); Respiratory Syncytial Virus Not Detected (Not Detect); SARS-CoV-2 Not Detected (Not Detect)
[2020-02-03 18:35] LABS: Hematocrit 27.5 % (35.3-44.9); Hemoglobin 8.8 g/dL (11.5-15.4)
[2020-02-03] MEDS: Piperacillin/Tazobactam 3.375 GM in 0.9 % Sodium Chloride Mini Bag 100 ML IVPB SCH (18:59)
[2020-02-03] MEDS: 0.9 % Sodium Chloride 1,000 ML IVC SCH (22:58)
[2020-02-04 00:26] LABS: Hematocrit 28.1 % (35.3-44.9)
[2020-02-04] MEDS: Pantoprazole 40 MG in 0.9 % Sodium Chloride Mini Bag 100 ML IVC SCH ×6 (03:50→23:38)
[2020-02-04 03:51] LABS: Basophils # 0.1 K/mcL (0.0-0.2); Basophils % 0.4 %; Eosinophils % 0.2 %; Hematocrit 26.9 % (35.3-44.9); Hemoglobin 8.5 g/dL (11.5-15.4); Immature Granulocytes % 0.3 % (0-4); Lymphocytes # 3.7 K/mcL (0.6-4.6); Lymphocytes % 28.9 %; Mean Corpuscular HGB Conc 31.6 g/dL (31.6-35.5); Mean Corpuscular Hemoglobin 29.4 pg (28.0-33.3); Mean Platelet Volume 11.3 fL (9.4-12.4); Monocytes # 1.3 K/mcL (0.0-1.3); Monocytes % 9.9 %; Neutrophils # 7.7 K/mcL (1.6-8.9); Platelet Count 261 K/mcL (140-400); Red Blood Count 2.89 M/mcL (3.82-4.97); Segmented Neutrophils % 60.3 %; White Blood Count 12.7 K/mcL (4.3-11.1)
[2020-02-04] MEDS: 0.9 % Sodium Chloride 1,000 ML IVC SCH (03:51)
[2020-02-04 03:56] LABS: Mean Corpuscular Volume 93.1 fL (83.0-100.0)
[2020-02-04 03:58] LABS: INR 1.1; Prothrombin Time 12.2 Seconds (9.4-12.1)
[2020-02-04] MEDS: Piperacillin/Tazobactam 3.375 GM in 0.9 % Sodium Chloride Mini Bag 100 ML IVPB SCH ×4 (04:07→20:02)
[2020-02-04 04:11] LABS: Alanine Aminotransferase 11 Units/L (7-52); Albumin 3.4 g/dL (3.5-5.7); Albumin/Globulin Ratio 1.5 (1.1-2.2); Alkaline Phosphatase 43 Units/L (34-104); Aspartate Amino Transferase 16 Units/L (13-39); BUN/Creatinine Ratio 45 (6-26); Bilirubin,Total 0.4 mg/dL (0.3-1.0); Blood Urea Nitrogen 35 mg/dL (8-23); Calcium 8.5 mg/dL (8.6-10.3); Carbon Dioxide 25 mEq/L (23-29); Chloride 110 mEq/L (98-107); Globulin 2.3 g/dL (2.4-3.5); Glucose 94 mg/dL (70-105); Osmolality,Calculated 302 (280-300); Potassium 3.7 mEq/L (3.5-5.1); Sodium 142 mEq/L (136-145); Total Protein 5.7 g/dL (6.4-8.9); eGFR For African Americans > 60 (> 60); eGFR For Non-African Americans > 60 (> 60)
[2020-02-04 11:02] LABS: Hematocrit 28.5 % (35.3-44.9); Hemoglobin 8.9 g/dL (11.5-15.4)
[2020-02-05 02:27] LABS: Basophils # 0.1 K/mcL (0.0-0.2); Basophils % 0.5 %; Eosinophils # 0.6 K/mcL (0.0-0.6); Eosinophils % 5.4 %; Hematocrit 25.2 % (35.3-44.9); Hemoglobin 7.7 g/dL (11.5-15.4); Immature Granulocytes % 0.3 % (0-4); Lymphocytes % 27.9 %; Mean Corpuscular HGB Conc 30.6 g/dL (31.6-35.5); Mean Corpuscular Hemoglobin 28.5 pg (28.0-33.3); Mean Corpuscular Volume 93.3 fL (83.0-100.0); Mean Platelet Volume 10.7 fL (9.4-12.4); Neutrophils # 6.1 K/mcL (1.6-8.9); Nucleated Red Blood Cells 0.2 /100 WBC (0); Platelet Count 232 K/mcL (140-400); Red Cell Distribution Width 14.7 % (11.5-14.5); Segmented Neutrophils % 56.9 %; White Blood Count 10.6 K/mcL (4.3-11.1)
[2020-02-05 02:47] LABS: Alanine Aminotransferase 10 Units/L (7-52); Albumin 3.3 g/dL (3.5-5.7); Albumin/Globulin Ratio 1.4 (1.1-2.2); Alkaline Phosphatase 41 Units/L (34-104); Aspartate Amino Transferase 17 Units/L (13-39); BUN/Creatinine Ratio 23 (6-26); Bilirubin,Total 0.5 mg/dL (0.3-1.0); Blood Urea Nitrogen 18 mg/dL (8-23); Calcium 8.2 mg/dL (8.6-10.3); Carbon Dioxide 24 mEq/L (23-29); Chloride 109 mEq/L (98-107); Globulin 2.3 g/dL (2.4-3.5); Glucose 88 mg/dL (70-105); Osmolality,Calculated 295 (280-300); Potassium 3.6 mEq/L (3.5-5.1); Sodium 142 mEq/L (136-145); Total Protein 5.6 g/dL (6.4-8.9); eGFR For African Americans > 60 (> 60); eGFR For Non-African Americans > 60 (> 60)
[2020-02-05] MEDS: Piperacillin/Tazobactam 3.375 GM in 0.9 % Sodium Chloride Mini Bag 100 ML IVPB SCH ×2 (03:52→12:11)
[2020-02-05] MEDS: Pantoprazole 40 MG in 0.9 % Sodium Chloride Mini Bag 100 ML IVC SCH ×4 (05:12→22:29)
[2020-02-05] MEDS ORDERED: Lidocaine -MPF 2% 2 ML VIAL ONE (12:45)
[2020-02-05] MEDS ORDERED: *HR* Propofol 200 MG/20 ML VIAL IVP ONE (12:45)
[2020-02-05] MEDS ORDERED: 0.9 % Sodium Chloride 500 ML IVC SCH (12:45)
[2020-02-05] MEDS ORDERED: *HR* Etomidate 40 MG/20 ML VIAL IVP ONE (12:45)
[2020-02-05 14:23] LABS: Hematocrit 25.8 % (35.3-44.9); Hemoglobin 8.3 g/dL (11.5-15.4)
[2020-02-05] MEDS: Amoxicillin 500 MG CAPSULE PO SCH ×2 (18:52→20:51)
[2020-02-05] MEDS ORDERED: Doxepin Hcl [Silenor] 6 MG PO SCH (21:00)
[2020-02-05] MEDS ORDERED: Sucralfate 1 GM TABLET PO SCH (21:00)
[2020-02-06] MEDS: Pantoprazole 40 MG in 0.9 % Sodium Chloride Mini Bag 100 ML IVC SCH ×3 (03:24→12:45)
[2020-02-06 06:51] LABS: Basophils # 0.1 K/mcL (0.0-0.2); Basophils % 0.6 %; Eosinophils # 0.6 K/mcL (0.0-0.6); Eosinophils % 7.2 %; Hematocrit 24.7 % (35.3-44.9); Hemoglobin 7.7 g/dL (11.5-15.4); Immature Granulocytes % 0.1 % (0-4); Lymphocytes % 23.1 %; Mean Corpuscular HGB Conc 31.2 g/dL (31.6-35.5); Mean Corpuscular Hemoglobin 29.1 pg (28.0-33.3); Mean Corpuscular Volume 93.2 fL (83.0-100.0); Mean Platelet Volume 11.4 fL (9.4-12.4); Monocytes # 0.8 K/mcL (0.0-1.3); Monocytes % 8.8 %; Neutrophils # 5.3 K/mcL (1.6-8.9); Platelet Count 242 K/mcL (140-400); Red Blood Count 2.65 M/mcL (3.82-4.97); Red Cell Distribution Width 14.1 % (11.5-14.5); Segmented Neutrophils % 60.2 %; White Blood Count 8.8 K/mcL (4.3-11.1)
[2020-02-06 06:58] LABS: Alanine Aminotransferase 10 Units/L (7-52); Albumin 3.3 g/dL (3.5-5.7); Albumin/Globulin Ratio 1.4 (1.1-2.2); Alkaline Phosphatase 45 Units/L (34-104); Aspartate Amino Transferase 17 Units/L (13-39); BUN/Creatinine Ratio 19 (6-26); Bilirubin,Total 0.5 mg/dL (0.3-1.0); Blood Urea Nitrogen 13 mg/dL (8-23); Calcium 8.7 mg/dL (8.6-10.3); Carbon Dioxide 26 mEq/L (23-29); Chloride 109 mEq/L (98-107); Globulin 2.3 g/dL (2.4-3.5); Glucose 99 mg/dL (70-105); Osmolality,Calculated 290 (280-300); Potassium 3.4 mEq/L (3.5-5.1); Sodium 140 mEq/L (136-145); Total Protein 5.6 g/dL (6.4-8.9); eGFR For African Americans > 60 (> 60); eGFR For Non-African Americans > 60 (> 60)
[2020-02-06] MEDS: Amoxicillin 500 MG CAPSULE PO SCH ×2 (07:56→12:44)
[2020-02-06] MEDS ORDERED: Iron Sucrose Complex 200 MG in 0.9 % Sodium Chloride 100 ML IVPB ONE (09:24)
[2020-02-06 14:40] VITALS: BP 135/61
[2020-02-06 15:22] LABS: Hematocrit 24.7 % (35.3-44.9); Hemoglobin 7.8 g/dL (11.5-15.4)
== END 2020-02-06 17:09 | disposition home or self-care (01) | DRG 378 ==
LOC: 3ANU 10:22 → EMEROOARM 10:22 → SUATTDRO 13:43 → 3ANU 14:30
PROVIDERS: ADMIT Internal Medicine; ATTEND Internal Medicine
PROC: ENDOEBX (2020-02-05 14:00)

== ENCOUNTER 2020-04-23 17:40 | Inpatient (IN) ==
[2020-04-23 18:47] LABS: INR 1.2; Prothrombin Time 13.3 Seconds (9.4-12.1)
[2020-04-23 18:57] LABS: Hematocrit 19.7 % (35.3-44.9); Mean Corpuscular HGB Conc 28.9 g/dL (31.6-35.5); Mean Corpuscular Hemoglobin 25.1 pg (28.0-33.3); Mean Corpuscular Volume 86.8 fL (83.0-100.0); Mean Platelet Volume 9.8 fL (9.4-12.4); Platelet Count 304 K/mcL (140-400); Red Blood Count 2.27 M/mcL (3.82-4.97); White Blood Count 6.4 K/mcL (4.3-11.1)
[2020-04-23 19:02] LABS: BUN/Creatinine Ratio 21 (6-26); Blood Urea Nitrogen 17 mg/dL (8-23); Calcium 8.6 mg/dL (8.6-10.3); Carbon Dioxide 23 mEq/L (23-29); Chloride 106 mEq/L (98-107); Glucose 139 mg/dL (70-105); Osmolality,Calculated 290 (280-300); Potassium 3.5 mEq/L (3.5-5.1); Sodium 138 mEq/L (136-145); eGFR For African Americans > 60 (> 60); eGFR For Non-African Americans > 60 (> 60)
[2020-04-23 19:07] LABS: Hemoglobin 5.7 g/dL (11.5-15.4)
[2020-04-23 19:19] LABS: Basophils # 0.1 K/mcL (0.0-0.2); Lymphocytes # 2.1 K/mcL (0.6-4.6); Monocytes # 0.1 K/mcL (0.0-1.3)
[2020-04-23 19:20] LABS: Hypochromasia Present (Not Present); Platelet Estimate Normal (Normal); Reactive Lymphocytes Present (Not Present)
[2020-04-23] MEDS ORDERED: Ondansetron 4 MG/2 ML VIAL IVP PRN (20:00)
[2020-04-23] MEDS ORDERED: Naloxone 0.4 MG/ML INJ IVP PRN (20:00)
[2020-04-23] MEDS ORDERED: 0.9 % Sodium Chloride 250 ML ONE ×2 (20:03→23:13)
[2020-04-23 20:17] LABS: Immature Reticulocyte % 34.4 % (11.0-38.0); Retculocyte # 0.13 M/mcL (0.05-0.10); Reticulocyte % 5.4 % (1.6-2.8)
[2020-04-23 20:40] LABS: Iron < 10 mcg/dL (50-170); Transferrin 321 mg/dL (203-362)
[2020-04-23] MEDS ORDERED: Dextrose Gel 15 GM/37.5 ML TUBE PO PRN ×2 (22:35)
[2020-04-23] MEDS ORDERED: D5% in Water 1,000 ML IVC PRN (22:35)
[2020-04-23] MEDS ORDERED: *HR* Dextrose 50 % in Water (Vial) 50 ML VIAL IVP PRN (22:35)
[2020-04-23 22:47] LABS: Estimated Average Glucose 108 mg/dl; Hemoglobin A1C 5.4 %
[2020-04-24] MEDS ORDERED: Pantoprazole 40 MG VIAL IVP SCH (06:00)
[2020-04-24 09:52] LABS: Hematocrit 27.9 % (35.3-44.9); Mean Corpuscular HGB Conc 30.1 g/dL (31.6-35.5); Mean Corpuscular Hemoglobin 25.8 pg (28.0-33.3); Mean Corpuscular Volume 85.6 fL (83.0-100.0); Mean Platelet Volume 11.2 fL (9.4-12.4); Platelet Count 212 K/mcL (140-400); Red Blood Count 3.26 M/mcL (3.82-4.97); Red Cell Distribution Width 15.4 % (11.5-14.5); White Blood Count 8.3 K/mcL (4.3-11.1)
[2020-04-24 10:00] LABS: Magnesium 2.1 mg/dL (1.6-2.6); Phosphorous 3.8 mg/dL (2.7-4.5)
[2020-04-24 10:03] LABS: Hemoglobin 8.4 g/dL (11.5-15.4)
[2020-04-24 10:04] LABS: Alanine Aminotransferase 6 Units/L (7-52); Albumin/Globulin Ratio 1.3 (1.1-2.2); Alkaline Phosphatase 65 Units/L (34-104); Aspartate Amino Transferase 15 Units/L (13-39); BUN/Creatinine Ratio 17 (6-26); Bilirubin,Total 0.6 mg/dL (0.3-1.0); Blood Urea Nitrogen 14 mg/dL (8-23); Carbon Dioxide 22 mEq/L (23-29); Chloride 108 mEq/L (98-107); Globulin 3.2 g/dL (2.4-3.5); Glucose 106 mg/dL (70-105); Osmolality,Calculated 291 (280-300); Potassium 3.5 mEq/L (3.5-5.1); Sodium 140 mEq/L (136-145); Total Protein 7.2 g/dL (6.4-8.9); eGFR For African Americans > 60 (> 60); eGFR For Non-African Americans > 60 (> 60)
[2020-04-24] MEDS ORDERED: 0.9 % Sodium Chloride 250 ML ONE (10:09)
[2020-04-24 10:17] LABS: INR 1.1; Prothrombin Time 12.6 Seconds (9.4-12.1)
[2020-04-24 10:20] LABS: Ferritin 37 ng/mL (10-120)
[2020-04-24 10:27] LABS: Folate 8.7 ng/mL (3.0-16.0)
[2020-04-24] MEDS: Multivit/Ca/Min/Fe/FA 1 TAB TABLET PO SCH (10:34)
[2020-04-24] MEDS ORDERED: Pantoprazole 40 MG VIAL IVP ONE (11:48)
[2020-04-24] MEDS ORDERED: Pantoprazole 40 MG in 0.9 % Sodium Chloride Mini Bag 100 ML IVC SCH (12:00)
[2020-04-24 13:14] LABS: Adenovirus Not Detected (Not Detect); Bordetella Pertussis Not Detected (Not Detect); Chlamydophila pneumoniae Not Detected (Not Detect); Coronavirus 229E Not Detected (Not Detect); Coronavirus HKU1 Not Detected (Not Detect); Coronavirus NL63 Not Detected (Not Detect); Coronavirus OC43 Not Detected (Not Detect); Human Metapneumovirus Not Detected (Not Detect); Human Rhinovirus/Enterovirus Not Detected (Not Detect); Influenza A Subtype 2009 H1 Not Detected (Not Detect); Influenza B Not Detected (Not Detect); Mycoplasma pneumoniae Not Detected (Not Detect); Parainfluenza Virus 1 Not Detected (Not Detect); Parainfluenza Virus 2 Not Detected (Not Detect); Parainfluenza Virus 3 Not Detected (Not Detect); Parainfluenza Virus 4 Not Detected (Not Detect); Respiratory Syncytial Virus Not Detected (Not Detect); SARS-CoV-2 Not Detected (Not Detect)
[2020-04-24] MEDS ORDERED: 0.9 % Sodium Chloride 1,000 ML IVC SCH (14:15)
[2020-04-24] MEDS ORDERED: Lidocaine -MPF 2% 2 ML VIAL ONE (14:36)
[2020-04-24] MEDS ORDERED: *HR* Propofol 200 MG/20 ML VIAL IVP ONE (14:36)
[2020-04-24] MEDS: Pantoprazole 40 MG VIAL IVP SCH (17:00)
[2020-04-24] MEDS: carvediloL 6.25 MG TABLET PO SCH (20:49)
[2020-04-24 20:50] LABS: Hematocrit 31.2 % (35.3-44.9); Hemoglobin 9.7 g/dL (11.5-15.4)
[2020-04-24] MEDS ORDERED: Sucralfate 1 GM TABLET PO SCH (21:00)
[2020-04-25 01:53] LABS: Basophils % 0.5 %; Eosinophils # 0.5 K/mcL (0.0-0.6); Hemoglobin 8.9 g/dL (11.5-15.4); Immature Granulocytes % 0.3 % (0-4); Lymphocytes # 2.2 K/mcL (0.6-4.6); Lymphocytes % 29.6 %; Mean Corpuscular HGB Conc 31.8 g/dL (31.6-35.5); Mean Corpuscular Hemoglobin 27.1 pg (28.0-33.3); Mean Corpuscular Volume 85.4 fL (83.0-100.0); Mean Platelet Volume 10.1 fL (9.4-12.4); Monocytes # 0.7 K/mcL (0.0-1.3); Monocytes % 9.5 %; Platelet Count 269 K/mcL (140-400); Red Blood Count 3.28 M/mcL (3.82-4.97); Red Cell Distribution Width 14.8 % (11.5-14.5); Segmented Neutrophils % 53.1 %; White Blood Count 7.5 K/mcL (4.3-11.1)
[2020-04-25 02:20] LABS: BUN/Creatinine Ratio 19 (6-26); Blood Urea Nitrogen 11 mg/dL (8-23); Calcium 8.4 mg/dL (8.6-10.3); Carbon Dioxide 22 mEq/L (23-29); Chloride 109 mEq/L (98-107); Glucose 88 mg/dL (70-105); Osmolality,Calculated 289 (280-300); Phosphorous 4.4 mg/dL (2.7-4.5); Potassium 3.1 mEq/L (3.5-5.1); Sodium 140 mEq/L (136-145); eGFR For African Americans > 60 (> 60); eGFR For Non-African Americans > 60 (> 60)
[2020-04-25] MEDS: Pantoprazole 40 MG VIAL IVP SCH (05:25)
[2020-04-25] MEDS: carvediloL 6.25 MG TABLET PO SCH (08:41)
[2020-04-25] MEDS: Multivit/Ca/Min/Fe/FA 1 TAB TABLET PO SCH (08:42)
[2020-04-25] MEDS: Calcium Gluconate 1gm/50mL 1 GM/50 ML BAG IVPB SCH ×2 (08:42→09:19)
[2020-04-25] MEDS ORDERED: Furosemide 20 MG TABLET PO SCH (09:00)
[2020-04-25] MEDS ORDERED: amLODIPine 5 MG TABLET PO SCH (09:00)
[2020-04-25 12:18] LABS: Hematocrit 32.1 % (35.3-44.9)
[2020-04-25 13:23] VITALS: BP 148/60
[2020-04-25] MEDS ORDERED: Aspirin 81 MG TAB.CHEW PO SCH (14:24)
== END 2020-04-25 17:12 | disposition home or self-care (01) | DRG 378 ==
LOC: 2ANU 17:40 → EMEROOARM 17:40 → SUATTDRO 21:39 → 2ANU 22:44
PROVIDERS: ADMIT Internal Medicine; ATTEND Internal Medicine

== ENCOUNTER 2020-06-21 12:49 | Inpatient (IN) ==
[2020-06-21] MEDS ORDERED: 0.9 % Sodium Chloride 1,000 ML ONE (12:59)
[2020-06-21] MEDS ORDERED: 0.9 % Sodium Chloride 1,000 ML IVC ONE (12:59)
[2020-06-21] MEDS ORDERED: Pantoprazole 80 MG in 0.9 % Sodium Chloride 50 ML IVPB ONE (12:59)
[2020-06-21] MEDS ORDERED: Octreotide 50 MCG/ML INJ IVP ONE (12:59)
[2020-06-21] MEDS ORDERED: Pantoprazole 40 MG in 0.9 % Sodium Chloride Mini Bag 100 ML IVC SCH (13:00)
[2020-06-21] MEDS ORDERED: Pantoprazole 40 MG VIAL ONE (13:01)
[2020-06-21] MEDS ORDERED: Pantoprazole 40 MG VIAL IVP ONE (13:06)
[2020-06-21] MEDS: Octreotide 400 MCG in 0.9 % Sodium Chloride 100 ML IVC SCH (13:40)
[2020-06-21 13:41] LABS: Basophils % 0.4 %; Eosinophils # 0.2 K/mcL (0.0-0.6); Eosinophils % 1.6 %; Hemoglobin 6.4 g/dL (11.5-15.4); Immature Granulocytes % 0.4 % (0-4); Lymphocytes # 1.7 K/mcL (0.6-4.6); Lymphocytes % 18.4 %; Mean Corpuscular HGB Conc 30.5 g/dL (31.6-35.5); Mean Corpuscular Hemoglobin 29.1 pg (28.0-33.3); Mean Corpuscular Volume 95.5 fL (83.0-100.0); Mean Platelet Volume 10.9 fL (9.4-12.4); Monocytes # 0.7 K/mcL (0.0-1.3); Neutrophils # 6.6 K/mcL (1.6-8.9); Platelet Count 281 K/mcL (140-400); Red Cell Distribution Width 18.9 % (11.5-14.5); Segmented Neutrophils % 71.2 %; White Blood Count 9.3 K/mcL (4.3-11.1)
[2020-06-21 13:51] LABS: INR 1.1; Prothrombin Time 13.1 Seconds (9.4-12.1)
[2020-06-21 13:54] LABS: Activated Partial Thrombo Time 24.3 Seconds (26.0-36.0); BUN/Creatinine Ratio 27 (6-26); Blood Urea Nitrogen 21 mg/dL (8-23); Calcium 8.4 mg/dL (8.6-10.3); Carbon Dioxide 23 mEq/L (23-29); Chloride 110 mEq/L (98-107); Glucose 163 mg/dL (70-105); Lipase 40 Units/L (11-82); Osmolality,Calculated 301 (280-300); Potassium 3.8 mEq/L (3.5-5.1); Sodium 142 mEq/L (136-145); eGFR For African Americans > 60 (> 60); eGFR For Non-African Americans > 60 (> 60)
[2020-06-21 13:55] LABS: Troponin I < 0.03 ng/mL (< 0.04)
[2020-06-21] MEDS ORDERED: *HR* FentaNYL (PF) 100 MCG/2 ML VIAL IVP ONE ×2 (14:20→18:22)
[2020-06-21] MEDS ORDERED: *HR* HYDROmorphone (PF) 1 MG/ML SYRINGE IVP ONE (14:55)
[2020-06-21] MEDS ORDERED: SODIUM CHLORIDE 0.9% IVP ONE ×3 (14:57→16:07)
[2020-06-21] MEDS ORDERED: IOPAMIDOL IVP ONE ×3 (14:57→16:07)
[2020-06-21] MEDS ORDERED: Isovue-370 500 ML BOTTLE IVP ONE (16:07)
[2020-06-21] MEDS ORDERED: Metoclopramide 10 MG/2 ML VIAL IVP ONE (16:16)
[2020-06-21] MEDS ORDERED: Acetaminophen 325 MG TABLET PO PRN (16:41)
[2020-06-21] MEDS ORDERED: *HR* HYDROcodone/Acet 5/325 mg TABLET PO PRN (16:41)
[2020-06-21] MEDS ORDERED: Ondansetron 4 MG/2 ML VIAL IVP PRN (16:41)
[2020-06-21] MEDS ORDERED: Naloxone 0.4 MG/ML INJ IVP PRN (16:41)
[2020-06-21] MEDS ORDERED: D5% in Water 1,000 ML IVC PRN (16:43)
[2020-06-21] MEDS ORDERED: Dextrose Gel 15 GM/37.5 ML TUBE PO PRN ×2 (16:43)
[2020-06-21] MEDS ORDERED: *HR* Dextrose 50 % in Water (Vial) 50 ML VIAL IVP PRN (16:43)
[2020-06-21 17:37] LABS: Estimated Average Glucose 82 mg/dl; Hemoglobin A1C 4.5 %
[2020-06-21 17:38] LABS: Troponin I < 0.03 ng/mL (< 0.04)
[2020-06-21 17:52] LABS: Hematocrit 28.5 % (35.3-44.9)
[2020-06-21 17:52] LABS: Thyroid Stimulating Hormone 1.174 mcIU/mL (0.340-5.600)
[2020-06-21] MEDS ORDERED: Pantoprazole 40 MG VIAL IVP SCH (18:00)
[2020-06-21] MEDS ORDERED: *HR* Midazolam HCl 5 MG/5 ML VIAL IVP ONE ×2 (18:04→18:22)
[2020-06-21] MEDS ORDERED: *HR* FentaNYL (PF) 100 MCG/2 ML VIAL ONE (18:04)
[2020-06-21] MEDS ORDERED: Tetracaine/Benzocaine/Butamben 1 SPRAY AEROSOL MM ONE (18:22)
[2020-06-21] MEDS ORDERED: Nitroglycerin 0.4 MG TAB.SUBL SL PRN (18:25)
[2020-06-21] MEDS: Pantoprazole 40 MG in 0.9 % Sodium Chloride Mini Bag 100 ML IVC SCH (20:11)
[2020-06-22] MEDS: Pantoprazole 40 MG in 0.9 % Sodium Chloride Mini Bag 100 ML IVC SCH ×5 (00:35→23:22)
[2020-06-22] MEDS ORDERED: Erythromycin Lactobionate 250 MG in 0.9 % Sodium Chloride 100 ML IVPB ONE (05:00)
[2020-06-22] MEDS: Octreotide 400 MCG in 0.9 % Sodium Chloride 100 ML IVC SCH (05:36)
[2020-06-22 06:17] LABS: Alanine Aminotransferase 18 Units/L (7-52); Albumin 3.1 g/dL (3.5-5.7); Albumin/Globulin Ratio 1.3 (1.1-2.2); Alkaline Phosphatase 80 Units/L (34-104); Aspartate Amino Transferase 30 Units/L (13-39); BUN/Creatinine Ratio 35 (6-26); Bilirubin,Total 0.5 mg/dL (0.3-1.0); Blood Urea Nitrogen 22 mg/dL (8-23); Calcium 8.1 mg/dL (8.6-10.3); Carbon Dioxide 21 mEq/L (23-29); Chloride 109 mEq/L (98-107); Globulin 2.4 g/dL (2.4-3.5); Glucose 114 mg/dL (70-105); Magnesium 1.9 mg/dL (1.6-2.6); Osmolality,Calculated 296 (280-300); Phosphorous 2.9 mg/dL (2.7-4.5); Potassium 3.6 mEq/L (3.5-5.1); Sodium 141 mEq/L (136-145); Total Protein 5.5 g/dL (6.4-8.9); eGFR For African Americans > 60 (> 60); eGFR For Non-African Americans > 60 (> 60)
[2020-06-22] MEDS ORDERED: *HR* Propofol 200 MG/20 ML VIAL IVP ONE (09:28)
[2020-06-22] MEDS ORDERED: Lidocaine -MPF 2% 2 ML VIAL ONE (09:51)
[2020-06-22] MEDS ORDERED: *HR* Etomidate 40 MG/20 ML VIAL IVP ONE (10:02)
[2020-06-22] MEDS: Calcium Gluconate 1gm/50mL 1 GM/50 ML BAG IVPB SCH ×2 (10:26→11:22)
[2020-06-22 10:58] LABS: Basophils % 0.3 %; Eosinophils # 0.2 K/mcL (0.0-0.6); Eosinophils % 1.6 %; Hematocrit 25.7 % (35.3-44.9); Hemoglobin 8.1 g/dL (11.5-15.4); Immature Granulocytes % 0.4 % (0-4); Lymphocytes # 1.6 K/mcL (0.6-4.6); Lymphocytes % 13.5 %; Mean Corpuscular HGB Conc 31.5 g/dL (31.6-35.5); Mean Corpuscular Hemoglobin 27.9 pg (28.0-33.3); Mean Corpuscular Volume 88.6 fL (83.0-100.0); Mean Platelet Volume 10.6 fL (9.4-12.4); Monocytes % 8.5 %; Neutrophils # 8.8 K/mcL (1.6-8.9); Platelet Count 255 K/mcL (140-400); Red Cell Distribution Width 18.6 % (11.5-14.5); Segmented Neutrophils % 75.7 %; White Blood Count 11.6 K/mcL (4.3-11.1)
[2020-06-22 10:59] LABS: INR 1.2; Prothrombin Time 13.8 Seconds (9.4-12.1)
[2020-06-22] MEDS ORDERED: 0.9 % Sodium Chloride 250 ML ONE (12:47)
[2020-06-22 12:53] LABS: Bilirubin,Urine Negative (Negative); Blood,Urine Negative (Negative); Clarity,Urine Clear (Clear); Color,Urine Light-Yellow (Yellow); Glucose,Urine (UA) Normal (Normal); Ketones,Urine Negative (Negative); Leukocyte Esterase,Urine Negative (Negative); Nitrite,Urine Negative (Negative); Protein,Urine Trace mg/dL (Neg-Trace); Specific Gravity,Urine > 1.030 (1.010-1.025); Urobilinogen,Urine Normal (Normal)
[2020-06-22] MEDS ORDERED: Melatonin 3 MG TABLET PO PRN (18:47)
[2020-06-22 19:09] LABS: Hematocrit 28.7 % (35.3-44.9); Hemoglobin 9.2 g/dL (11.5-15.4)
[2020-06-22] MEDS: carvediloL 6.25 MG TABLET PO SCH (21:40)
[2020-06-23 02:15] LABS: Basophils % 0.4 %; Eosinophils # 0.4 K/mcL (0.0-0.6); Hematocrit 26.3 % (35.3-44.9); Hemoglobin 8.5 g/dL (11.5-15.4); Immature Granulocytes % 0.3 % (0-4); Lymphocytes # 1.8 K/mcL (0.6-4.6); Lymphocytes % 23.4 %; Mean Corpuscular HGB Conc 32.3 g/dL (31.6-35.5); Mean Corpuscular Hemoglobin 28.6 pg (28.0-33.3); Mean Corpuscular Volume 88.6 fL (83.0-100.0); Mean Platelet Volume 10.7 fL (9.4-12.4); Monocytes # 0.7 K/mcL (0.0-1.3); Monocytes % 8.5 %; Neutrophils # 4.9 K/mcL (1.6-8.9); Platelet Count 222 K/mcL (140-400); Red Blood Count 2.97 M/mcL (3.82-4.97); Red Cell Distribution Width 18.6 % (11.5-14.5); Segmented Neutrophils % 62.4 %; White Blood Count 7.9 K/mcL (4.3-11.1)
[2020-06-23 02:34] LABS: BUN/Creatinine Ratio 21 (6-26); Blood Urea Nitrogen 13 mg/dL (8-23); Calcium 8.2 mg/dL (8.6-10.3); Carbon Dioxide 25 mEq/L (23-29); Chloride 109 mEq/L (98-107); Glucose 90 mg/dL (70-105); Magnesium 1.8 mg/dL (1.6-2.6); Osmolality,Calculated 292 (280-300); Phosphorous 3.5 mg/dL (2.7-4.5); Potassium 2.9 mEq/L (3.5-5.1); Sodium 141 mEq/L (136-145); eGFR For African Americans > 60 (> 60); eGFR For Non-African Americans > 60 (> 60)
[2020-06-23] MEDS: Pantoprazole 40 MG in 0.9 % Sodium Chloride Mini Bag 100 ML IVC SCH (04:25)
[2020-06-23] MEDS: Calcium Gluconate 1gm/50mL 1 GM/50 ML BAG IVPB SCH ×2 (10:08→11:17)
[2020-06-23] MEDS ORDERED: 0.9 % Sodium Chloride 250 ML ONE (11:50)
[2020-06-23] MEDS: carvediloL 6.25 MG TABLET PO SCH ×2 (12:16→21:38)
[2020-06-23] MEDS: Multivit/Ca/Min/Fe/FA 1 TAB TABLET PO SCH (12:50)
[2020-06-23 19:03] LABS: Hematocrit 36.9 % (35.3-44.9)
[2020-06-23 19:04] LABS: Hemoglobin 12.1 g/dL (11.5-15.4)
[2020-06-23 19:34] LABS: Hematocrit 35.4 % (35.3-44.9); Hemoglobin 11.4 g/dL (11.5-15.4)
[2020-06-23] MEDS ORDERED: Insulin LISPRO 300 UNITS/3 ML VIAL SUBQ SCH (21:00)
[2020-06-24 03:38] LABS: Basophils % 0.5 %; Eosinophils # 0.3 K/mcL (0.0-0.6); Eosinophils % 5.8 %; Hematocrit 31.5 % (35.3-44.9); Hemoglobin 10.1 g/dL (11.5-15.4); Immature Granulocytes % 0.2 % (0-4); Lymphocytes # 1.3 K/mcL (0.6-4.6); Lymphocytes % 22.9 %; Mean Corpuscular HGB Conc 32.1 g/dL (31.6-35.5); Mean Corpuscular Hemoglobin 28.8 pg (28.0-33.3); Mean Corpuscular Volume 89.7 fL (83.0-100.0); Mean Platelet Volume 10.6 fL (9.4-12.4); Monocytes # 0.6 K/mcL (0.0-1.3); Monocytes % 10.8 %; Neutrophils # 3.5 K/mcL (1.6-8.9); Platelet Count 235 K/mcL (140-400); Red Blood Count 3.51 M/mcL (3.82-4.97); Red Cell Distribution Width 17.7 % (11.5-14.5); Segmented Neutrophils % 59.8 %; White Blood Count 5.8 K/mcL (4.3-11.1)
[2020-06-24 03:57] LABS: BUN/Creatinine Ratio 18 (6-26); Blood Urea Nitrogen 12 mg/dL (8-23); Calcium 8.5 mg/dL (8.6-10.3); Carbon Dioxide 25 mEq/L (23-29); Chloride 109 mEq/L (98-107); Glucose 88 mg/dL (70-105); Magnesium 2.4 mg/dL (1.6-2.6); Osmolality,Calculated 293 (280-300); Phosphorous 4.7 mg/dL (2.7-4.5); Potassium 3.6 mEq/L (3.5-5.1); Sodium 142 mEq/L (136-145); eGFR For African Americans > 60 (> 60); eGFR For Non-African Americans > 60 (> 60)
[2020-06-24] MEDS: Insulin LISPRO 300 UNITS/3 ML VIAL SUBQ SCH ×2 (07:48→11:56)
[2020-06-24] MEDS: carvediloL 6.25 MG TABLET PO SCH (07:56)
[2020-06-24] MEDS: Multivit/Ca/Min/Fe/FA 1 TAB TABLET PO SCH (07:56)
[2020-06-24] MEDS: Calcium Gluconate 1gm/50mL 1 GM/50 ML BAG IVPB SCH ×2 (10:47→11:44)
[2020-06-24 11:02] VITALS: BP 136/68
== END 2020-06-24 16:17 | disposition home health service (06) | DRG 378 ==
LOC: SUATTDRO → EMEROOARM 12:49 → 2NNU 12:49 → SUATTDRO 17:52 → 2NNU 18:21 → ICNU 18:59 → 3NENU 06-22 17:43
PROVIDERS: ADMIT Internal Medicine; ATTEND Internal Medicine